=== PATIENT | male | born 1955 | race Caucasian/White ===

== ENCOUNTER 2019-08-31 19:24 | Outpatient (REF) | payer OTHER, SELFPAY ==
[2019-08-31 19:56] LABS: Basophils # 0.1 10^3/uL (0.0-0.1); Basophils % 0.7 %; Eosinophils # 0.2 10^3/uL (0.0-0.8); Eosinophils % 2.7 %; Hematocrit 37.2 % (42.0-52.0); Hemoglobin 11.4 g/dL (11.7-16.6); Lymphocytes # 2.6 10^3/uL (0.8-4.8); Lymphocytes % 31.3 %; Mean Corpuscular HGB Conc 30.6 g/dL (30.0-36.0); Mean Corpuscular Hemoglobin 25.7 pg (28.0-34.0); Mean Corpuscular Volume 83.8 fL (80-94); Mean Platelet Volume 10.6 fL (7.4-10.4); Monocytes # 0.6 10^3/uL (0.2-0.9); Monocytes % 7.4 %; Neutrophils # 4.7 10^3/uL (1.8-7.7); Neutrophils % 57.5 %; Nucleated Red Blood Cells % 0 %; Platelet Count 406 10^3/cmm (130-400); Red Blood Count 4.44 10^6/uL (4.1-5.3); Red Cell Distribution Width 13.7 % (12.1-15.1); White Blood Count 8.2 10^3/uL (4.0-10.0)
[2019-08-31 20:11] LABS: Alanine Aminotransferase 18 U/L (0-41); Albumin Level 4.2 g/dL (3.5-5.2); Alkaline Phosphatase 49 IU/L (40-130); Anion Gap 16.7 (5-19); Aspartate Amino Transferase 23 U/L (0-40); Blood Urea Nitrogen 11 mg/dL (8-23); Calcium 9.8 mg/Dl (8.8-10.2); Carbon Dioxide 22 mmol/L (22-29); Chloride 104 mmol/L (98-107); Globulin 3.6 g/dL (1.3-4.6); Glomerular Filtration Rate 85.8 mL/min (90-130); Glucose 112 mg/dL (74-106); Potassium 3.7 mmol/L (3.5-5.1); Sodium 139 mmol/L (136-145); Total Bilirubin 0.4 mg/dL (0.15-1.2); Total Protein 7.8 g/dL (6.6-8.7)
== END 2019-08-31 19:25 | disposition home or self-care (01) ==
LOC: LAB 19:24
PROVIDERS: Family Provider Family Medicine; Visit Provider Orthopaedic Surgery Foot and Ankle Surgery
DX: Z01.89 Encounter for other specified special examinations (principal)
CPT/HCPCS: 80053; 85025

== ENCOUNTER 2019-10-05 14:48 | Outpatient (CLI) | payer SELFPAY ==
--- NOTE | 2019-10-05 14:55 | CT_ITS ---
WS: [id number] CT HEAD TECHNIQUE: Noncontrast and contrast-enhanced CT of the head. CLINICAL INFORMATION: CANO, ?BRAIN TUMOR COMPARISON: MRI 2006 DLP: 1984.[address] scans at [facility] use at least one of these dose optimization techniques: automat ed exposure control; mA and/or kV adjustment per patient size (includes targeted exams where dose is matched to clinical indication); or iterative reconstruction. FINDINGS: MRI August 04, 2007 reviewed. Possible pituitary microadenoma measuring 5 mm in the left aspect of the pituitary was described on the prior MRI report. No evidence of intracranial hemorrhage or mass effect. Ventricular system and basal cisterns are parrish nt. Moderate small vessel changes with mild parenchymal volume loss. No abnormal intracranial enhance ment. Mastoid air cells are well aerated. Mild mucosal thickening in the ethmoid air cells. No abnormal intracranial enhancement. No visualized pituitary abnormalities although this would be be tter evaluated with MRI. No evidence of sellar or suprasellar mass. CT/CT head wo/w con [id number] IMPRESSION: 1. No evidence of intracranial hemorrhage or mass effect. 2. Moderate small vessel changes. Mild parenchymal volume loss. 3. No abnormal intracranial enhancement. 4. No visualized pituitary abnormalities. Pituitary would be better evaluated with MRI if continued clinical concern.
[2019-10-05] MEDS: iohexol 300 mg/mL 100 mL Btl IV (15:11)
== END 2019-10-05 14:49 | disposition home or self-care (01) ==
LOC: RADWPI 14:54
PROVIDERS: Family Provider Family Medicine; PCP Internal Medicine; Visit Provider Internal Medicine
DX: D49.6 Neoplasm of unspecified behavior of brain (principal); R51 Headache
CPT/HCPCS: 70470; Q9967

== ENCOUNTER 2020-01-18 17:53 | Outpatient (CLI) | payer SELFPAY ==
[2020-01-18 21:00] LABS: Creatinine Urine, Random 250 mg/dL (39-259); Microalbum Creatinine Ratio Ur 8 mg/dL (0-20); Microalbumin Random Urine 2 ug/dL (0-20)
== END 2020-01-18 17:54 | disposition home or self-care (01) ==
LOC: LAB 17:54
PROVIDERS: Visit Provider Preventive Medicine Occupational Medicine
DX: I10 Essential (primary) hypertension (principal); I25.10 Atherosclerotic heart disease of native coronary artery without angina pectoris
CPT/HCPCS: 82044

== ENCOUNTER 2020-05-02 17:58 | Outpatient (CLI) | payer SELFPAY ==
[2020-05-02 19:00] LABS: Basophils # 0.1 10^3/uL (0.0-0.1); Basophils % 0.7 %; Eosinophils # 0.2 10^3/uL (0.0-0.8); Eosinophils % 3.1 %; Hematocrit 38.3 % (42.0-52.0); Hemoglobin 12.1 g/dL (11.7-16.6); Lymphocytes # 2.5 10^3/uL (0.8-4.8); Lymphocytes % 32.7 %; Mean Corpuscular HGB Conc 31.6 g/dL (30.0-36.0); Mean Corpuscular Hemoglobin 26.9 pg (28.0-34.0); Mean Corpuscular Volume 85.3 fL (80-94); Mean Platelet Volume 10.9 fL (7.4-10.4); Monocytes # 0.7 10^3/uL (0.2-0.9); Monocytes % 9.6 %; Neutrophils # 4.02 10^3/uL (1.8-7.7); Neutrophils % 53.5 %; Nucleated Red Blood Cells % 0 %; Platelet Count 410 10^3/cmm (130-400); Red Blood Count 4.49 10^6/uL (4.1-5.3); Red Cell Distribution Width 13.2 % (12.1-15.1); White Blood Count 7.5 10^3/uL (4.0-10.0)
[2020-05-02 19:19] LABS: Alanine Aminotransferase 32 U/L (0-41); Albumin Level 4.2 g/dL (3.5-5.2); Alkaline Phosphatase 39 IU/L (40-130); Anion Gap 15.1 (5-19); Aspartate Amino Transferase 29 U/L (0-40); Blood Urea Nitrogen 15 mg/dL (8-23); Calcium 9.5 mg/dL (8.5-10.5); Carbon Dioxide 23 mmol/L (22-29); Chloride 100 mmol/L (98-107); Globulin 3.7 g/dL (1.3-4.6); Glomerular Filtration Rate 67.8 mL/min (90-130); Glucose 250 mg/dL (65-115); Osmolality Calculated 283 mOsm/kg (285-295); Potassium 4.1 mmol/L (3.5-5.1); Sodium 134 mmol/L (136-145); Total Bilirubin 0.5 mg/dL (0.15-1.2); Total Protein 7.9 g/dL (6.6-8.7)
[2020-05-02 19:32] LABS: Estmated Average Glucose 217; Hemoglobin A1C 9.2 % (4.0-6.0)
== END 2020-05-02 17:59 | disposition home or self-care (01) ==
LOC: LAB 18:02
PROVIDERS: Visit Provider General Practice
DX: E11.9 Type 2 diabetes mellitus without complications (principal)
CPT/HCPCS: 80053; 83036; 85025

== ENCOUNTER 2021-04-03 18:40 | Outpatient (REF) | payer SELFPAY ==
[2021-04-03 19:30] LABS: Add Urine Microscopic? NO; Charge for UA Resulting for Rev
[2021-04-03 19:59] LABS: Bilirubin Urine Neg (Negative); Blood Urine Neg (Negative); Glucose Urine UA 4+ (Normal); Ketones Urine Negative (Negative); Leukocyte Esterase Urine Negative (Negative); Nitrate Urine Negative (Negative); Protein Urine Neg (Negative); Specific Gravity, Urine 1.015 (1.005-1.030); Urine Appearance Clear (CLEAR); Urine Color Yellow (Yellow); Urobilinogen Urine Neg (Negative); pH Urine 5 (5-7)
[2021-04-03 20:20] LABS: Alanine Aminotransferase 108 U/L (0-41); Albumin Level 4.2 g/dL (3.5-5.2); Alkaline Phosphatase 39 IU/L (40-130); Anion Gap 18.1 (5-19); Aspartate Amino Transferase 105 U/L (0-40); Blood Urea Nitrogen 22 mg/dL (8-23); Carbon Dioxide 20 mmol/L (22-29); Chloride 97 mmol/L (98-107); Globulin 3.8 g/dL (1.3-4.6); Glomerular Filtration Rate 61.1 mL/min (90-130); Glucose 432 mg/dL (65-115); Osmolality Calculated 294 mOsm/kg (285-295); Potassium 4.1 mmol/L (3.5-5.1); Sodium 131 mmol/L (136-145); Total Bilirubin 0.6 mg/dL (0.15-1.2)
[2021-04-03 20:37] LABS: Estmated Average Glucose 306; Hemoglobin A1C 12.3 % (4.0-6.0)
== END 2021-04-03 18:41 | disposition home or self-care (01) ==
LOC: LAB 18:40
PROVIDERS: Visit Provider General Practice
DX: E11.9 Type 2 diabetes mellitus without complications (principal)
CPT/HCPCS: 80053; 81003; 83036

== ENCOUNTER 2021-11-25 15:41 | Outpatient (CLI) | payer OTHER, SELFPAY ==
--- NOTE | 2021-11-25 16:24 | XR_ITS ---
WS: [id number] XR lumbar spine 2-3V* [id number] REASON FOR EXAM: LUMBAGO WITH SCIATICA RIGHT SIDE FINDINGS: Rotatory scoliosis convex right on the AP view. Mild straightening of the upper lumbar lordosis on th e lateral. Mild chronic compression deformity of L1 and T12. Mild to moderate narrowing of the disc spaces L1-S1. Large anterior osteophyte formation at L1-L2 and L2-L3. No spondylolysis. No significant spondylolisthesis. Compared to previous examination of 04/24/2016 enlargement of the osteophyte formation at L1-L2, L2-L3 and L3-L4. Otherwise no significant interval change. XR/XR lumbar spine 2-3V* [id number] IMPRESSION: Multilevel degenerative spondylosis in the lumbar spine as above.
--- NOTE | 2021-11-25 16:25 | XR_ITS ---
WS: [id number] XR ankle RT min 3V* [id number] REASON FOR EXAM: ANKLE PAIN, RIGHT FINDINGS: No acute fracture or focal bone lesion. Deformity of the distal right fibula with narrowing of the lateral aspect of the ankle joint. Subchon dral sclerosis and cystic change on the medial subarticular aspect of the fibula. No soft tissue abnormality. 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 Presum ed old healed fracture of the distal right fibula.
== END 2021-11-25 15:42 | disposition home or self-care (01) ==
PROVIDERS: PCP General Practice; Visit Provider Family Medicine
DX: M54.41 Lumbago with sciatica, right side (principal); M25.571 Pain in right ankle and joints of right foot; M47.816 Spondylosis without myelopathy or radiculopathy, lumbar region
CPT/HCPCS: 72100; 73610

== ENCOUNTER 2021-12-10 11:52 | Outpatient (RCR) | payer OTHER, SELFPAY | END 2021-12-20 23:59 | disposition home or self-care (01) | LOC: SPT 11:52 | PROVIDERS: PCP General Practice; Referring Provider Family Medicine; Visit Provider Family Medicine | DX: M25.571 Pain in right ankle and joints of right foot (principal); M54.41 Lumbago with sciatica, right side; M54.9 Dorsalgia, unspecified | CPT/HCPCS: 97161 ==

== ENCOUNTER 2021-12-21 | Outpatient (RCR) | payer OTHER, SELFPAY | END 2022-01-20 23:59 | disposition home or self-care (01) | LOC: SPT | PROVIDERS: PCP General Practice; Referring Provider Family Medicine; Visit Provider Family Medicine | DX: M25.571 Pain in right ankle and joints of right foot (principal); M54.41 Lumbago with sciatica, right side; G89.29 Other chronic pain; M54.9 Dorsalgia, unspecified | CPT/HCPCS: 97110 ==

== ENCOUNTER 2022-01-29 16:13 | Emergency (ER) | payer MEDICARE, OTHER, SELFPAY ==
--- NOTE | 2022-01-29 16:15 | XRR_ITS ---
PROCEDURE INFORMATION: Exam: XR Chest Exam date and time: 01/29/2022 5:01 PM Age: 66 years old Clinical indication: Other: Low blood sugar; Additional info: AMS TECHNIQUE: Imaging protocol: XR of the chest. Views: 1 view. COMPARISON: CR Chest 1 [place] [id number] 03/09/2016 8:48 AM FINDINGS: Lungs: Unremarkable. No consolidation. Pleural spaces: Unremarkable. No pleural effusion. No pneumothorax. Heart/Mediastinum: Unremarkable. No cardiomegaly. Bones/joints: Unremarkable. XR/XR chest 1V portable [id number] IMPRESSION: No acute findings.
--- NOTE | 2022-01-29 16:15 | ECG_ITS ---
[facility] Test Date: 2022-01-29 Pat Name: Barber Corral Department: Room: Gender: Male Certifier: : 1955 Requested By: Britney Nguyen Order Number: [id number] Soniya MD: Dominic Jennings M.D. Measurements Intervals [place] Rate: 92 P: 70 TN: 159 QRS: 81 QRSD: 138 T: 61 QT: 383 QTc: 475 Interpretive Statements SINUS RHYTHM RIGHT BUNDLE BRANCH BLOCK [120+ ms QRS DURATION, UPRIGHT V1, 40+ ms S IN I/aVL/V4/V5/V6] POSSIBLE ANTERIOR MYOCARDIAL INFARCTION , OF INDETERMINATE AGE [30 ms Q WAVE IN V3/V4, OR R < 0.2 mV IN V4] INFERIOR MYOCARDIAL INFARCTION , PROBABLY OLD [40+ ms Q WAVE AND/OR ST/T ABNORMALITY IN II/aVF] Compared to ECG 08/03/2019 05:39:49 Left posterior fascicular block no longer present Myocardial infarct finding still present Electronically Signed On 01-30-2022 17:01:07 CDT by Dominic Jennings M.D. [id number]
--- NOTE | 2022-01-29 16:15 | CTR_ITS ---
PROCEDURE INFORMATION: Exam: CT Head Without Contrast Exam date and time: 01/29/2022 5:00 PM Age: 66 years old Clinical indication: Altered mental status/memory loss and dizziness; Confusion or disorientation; Additional info: AMS, hypoglycemic TECHNIQUE: Imaging protocol: Computed tomography of the head without contrast. Radiation optimization: All CT scans at this facility use at least one of these dose optimization techniques: automated exposure control; mA and/or kV adjustment per patient size (includes targeted exams where dose is matched to clinical indication); or iterative reconstruction. COMPARISON: CT head wo/w con [id number] 10/05/2019 3:10 PM RADIATION DOSE METRICS: Total DLP (mGy-cm): 945.9 FINDINGS: Brain: No hemorrhage. No edema. Mild diffuse cerebral atrophy and sequela of chronic small vessel ischemic disease. No mass effect. Cerebral ventricles: No ventriculomegaly. Paranasal sinuses: Visualized sinuses are unremarkable. No fluid levels. Mastoid air cells: Visualized mastoid air cells are well aerated. Bones/joints: Unremarkable. No acute fracture. Soft tissues: Unremarkable. CT/CT head wo con* [id number] IMPRESSION: 1. No acute intracranial abnormality. 2. Mild diffuse cerebral atrophy and sequela of chronic small vessel ischemic disease.
[2022-01-29 16:31] VITALS: BP 87/56; PULSE 96; RESP 20; TEMP 36.3; BMI 35.4
[2022-01-29 16:37] VITALS: BP 93/65
--- NOTE | 2022-01-29 18:43 | ED_ITS ---
HPI - Altered Mental Status General: Chief Complaint: Altered Mental Status Stated Complaint: AMS Time Seen by Provider: 01/29/22 18:41 History of Present Illness: 66-year-old male patient became confused this afternoon. Patient reports that he was listening to the radio when his female friend came down to check on him. Patient did not answer the doorbell at first and his friend had to use the hidden clements in order to get into the room. Patient reports that he did not hear the doorbell and seemed confused at the time. Patient said that it felt like his blood sugar was low and he had hard time talking with her. She had gone to the store and got him some yogurt and a soda pop. Patient is very talkative at this time and seems to be recalling the events appropriately. Patient's friend in the room is male and does state he seems better now than what he was at first but does not seem to be acting his normal self at this time. NIH stroke score is 0 at this time. Associated symptoms: Deny depression Review of Systems General: Reports: 10 or more systems reviewed and unremarkable except in HPI and below Const: Denies: fever(s) ENMT: Denies: throat pain Card: Denies: chest pain Resp: Denies: dyspnea GI: Denies: nausea or vomiting Musc: Denies: neck pain Skin/Breast: Denies: rash Neuro: Reports: headache(s) and confusion Psych: Denies: depression PFSH ED PFSH: Medical History (Updated 01/29/22 @ 22:41 by HARINDER Santiago) ASHD (arteriosclerotic heart disease) Diabetes Encounter for screening colonoscopy Hyperlipidemia Hypertension Myocardial infarction Surgical History (Updated 09/09/21 @ 09:57 by Rolando Richard MD) History of coronary artery stent placement History of foot surgery S/P tonsillectomy Family History Father CAD (coronary artery disease) LIVER Social History Smoking and tobacco status: never smoked Marital status: service: No Current occupational status: disabled Physical Exam Const: COMMON NORMALS: alert HENMT: COMMON NORMALS: normocephalic HEAD & SCALP: normal to inspection and normocephalic Eye: GENERAL EYE: appearance normal, both eyes and all related structures Neck/C-Spine: COMMON NORMALS: full ROM, no lymphadenopathy and no meningeal signs Resp: COMMON NORMALS: normal respiratory effort and clear to auscultation bilaterally AUSCULTATION: clear to auscultation bilaterally Cardio: COMMON NORMALS: regular rate and regular rhythm RATE: regular rate RHYTHM: regular rhythm GI: COMMON NORMALS: Soft to palpation and non-tender PALPATION: Yes Soft to palpation Back/Pelvis: COMMON NORMALS: thoracic and lumbar spine normal to inspection Extremity: COMMON NORMALS: normal to inspection and no pedal edema Neuro: SENSORIUM/ORIENTATION: Yes alert MENINGEAL SIGNS: Yes no meningeal signs Psych: COMMON NORMALS: cooperative and speech normal SPEECH: Yes normal speech Skin: COMMON NORMALS: no rashes or lesions noted GENERAL SKIN EXAM: no rashes or lesions noted Sepsis: Is patient septic: No Course ED course: 1954, nursing notified me blood glucose was 400+ per fingerstick. Patient was started on a saline bolus of 1000 mL, given 10 units of rapid acting insulin subcu. ABG was ordered and serum ketones was ordered. Considering hyponatremia versus DKA, versus hyperosmotic nonketotic acidosis. Vital Signs: Vital signs: Vital Signs Temperature 97.4 F L 01/29/22 16:31 Pulse Rate 97 01/29/22 23:42 Respiratory Rate 22 H 01/29/22 23:42 Blood Pressure 180/88 01/29/22 23:42 Pulse Oximetry 99 01/29/22 23:42 MDM - Altered Mental Status Medical Decision Making 66-year-old male patient comes in today with altered mental status. Patient has chronic back pain and recently been started back on baclofen and hydrocodone for pain. His sister came into check on him this afternoon and found him he was confused. He thought his blood sugar was real low. Patient is much better since arriving at the ER but does have some mild confusion still. On exam respirations are even lungs are clear to auscultation. Abdomen is soft nontender. Patient did complain of some right ankle pain. No significant abnormality was noted to the ankle. Vital signs were normal except blood pressure was slightly low at 90 systolic. Differential diagnosis includes but not limited to CVA, adverse drug effect, depression, hypoglycemia. Blood glucose tested 400+ on arrival to the ER. Patient was given 2 L of IV fluids with brought her blood pressure up to 180 systolic. Patient was able to give us urine specimen that that showed no significant infection. Patient's creatinine was 1.6. CBC noted a 12,000 white count and platelets of 518. I believe patient probably had adverse drug effect secondary to baclofen, amitriptyline, and possibly hydrocodone. Recommended holding the baclofen and possibly the amitriptyline due to the patient's age and comorbidities. Patient was much improved by discharge. Was alert and was able to carry on conversation recall all events in the ER. Discussed with family recommendations for follow-up with primary care and discussed medications that would increase his confusion. Family reported understanding agreed to plan. Lab Data : 01/29/22 19:43 01/29/22 19:43 Radiology Impressions Chest X-Ray 01/29/22 16:15 IMPRESSION: No acute findings. Head CT 01/29/22 16:15 IMPRESSION: 1. No acute intracranial abnormality. 2. Mild diffuse cerebral atrophy and sequela of chronic small vessel ischemic disease. Laboratory Results WBC 12.2 10^3/uL (4.0-10.0) H 01/29/22 19:43 RBC 4.68 10^6/uL (4.1-5.3) 01/29/22 19:43 Hgb 12.1 g/dL (11.7-16.6) 01/29/22 19:43 Hct 37.2 % (42.0-52.0) L 01/29/22 19:43 MCV 79.5 fl (80-94) L 01/29/22 19:43 MCH 25.9 pg (28.0-34.0) L 01/29/22 19:43 MCHC 32.5 g/dL (30.0-36.0) 01/29/22 19:43 RDW 13.6 % (12.1-15.1) 01/29/22 19:43 Plt Count 518 10^3/cmm (130-400) H 01/29/22 19:43 MPV 10.1 fL (7.4-10.4) 01/29/22 19:43 Neut % (Auto) 74.9 % 01/29/22 19:43 Lymph % (Auto) 17.0 % 01/29/22 19:43 [place] % (Auto) 7.4 % 01/29/22 19:43 Eos % (Auto) 0.0 % 01/29/22 19:43 Baso % (Auto) 0.2 % 01/29/22 19:43 Neut # (Auto) 9.13 10^3/uL (1.8-7.7) H 01/29/22 19:43 Lymph # (Auto) 2.1 10^3/uL (0.8-4.8) 01/29/22 19:43 Carson # (Auto) 0.9 10^3/uL (0.2-0.9) 01/29/22 19:43 Eos # (Auto) 0.0 10^3/uL (0.0-0.8) 01/29/22 19:43 Baso # (Auto) 0.0 10^3/uL (0.0-0.1) 01/29/22 19:43 Nucleated RBC % (auto) 0 % 01/29/22 19:43 Nucleated RBCs # 0.0 /100WBC 01/29/22 19:43 Sodium 133 mmol/L (136-145) L 01/29/22 19:43 Potassium 5.1 mmol/L (3.5-5.1) 01/29/22 19:43 Chloride 93 mmol/L (98-107) L 01/29/22 19:43 Carbon Dioxide 23 mmol/L (22-29) 01/29/22 19:43 Anion Gap 22.1 (5-19) H 01/29/22 19:43 BUN 17 mg/dL (8-23) 01/29/22 19:43 Creatinine 1.6 mg/dL (0.7-1.2) H 01/29/22 19:43 GFR Calculation 43.7 mL/min (90-130) L 01/29/22 19:43 Glucose 399 mg/dL (65-115) H 01/29/22 19:43 POC Glucose 279 mg/dL (70-110) H 01/29/22 21:48 Calculated Osmolality 294 mOsm/kg (285-295) 01/29/22 19:43 Calcium 10.3 mg/dL (8.5-10.5) 01/29/22 19:43 Total Bilirubin 0.7 mg/dL (0.15-1.2) 01/29/22 19:43 AST 57 U/L (0-40) H 01/29/22 19:43 ALT 52 U/L (0-41) H 01/29/22 19:43 Alkaline Phosphatase 35 IU/L (40-130) L 01/29/22 19:43 Ammonia 15 umol/L (16-60) L 01/29/22 19:43 Troponin T Baseline 33 ng/L (0-15) H 01/29/22 19:43 Troponin T 120 Minute 25.69 ng/L (0-15) H 01/29/22 21:50 Delta Troponin T -7.31 ABS# (0-10) L 01/29/22 21:50 Total Protein 7.7 g/dL (6.6-8.7) 01/29/22 19:43 Albumin 4.5 g/dL (3.5-5.2) 01/29/22 19:43 Globulin 3.2 g/dL (1.3-4.6) 01/29/22 19:43 Lipase 45 U/L (13-60) 01/29/22 19:43 TSH 0.77 uIU/mL (0.27-4.20) 01/29/22 19:43 Free T4 1.33 ng/dL (0.82-1.77) 01/29/22 19:43 Urine Color Yellow (Yellow) 01/29/22 22:40 Urine Appearance Sl hazy (CLEAR) 01/29/22 22:40 Urine pH 5 (5-7) 01/29/22 22:40 Ur Specific [place] 1.005 (1.005-1.030) 01/29/22 22:40 Urine Protein 1+ (Negative) H 01/29/22 22:40 Urine Glucose (UA) 4+ (Normal) H 01/29/22 22:40 Urine Ketones 1+ (Negative) H 01/29/22 22:40 Urine Blood 2+ (Negative) H 01/29/22 22:40 Urine Nitrate Negative (Negative) 01/29/22 22:40 Urine Bilirubin Neg (Negative) 01/29/22 22:40 Urine Urobilinogen Norm mg/dL (Negative) 01/29/22 22:40 Ur Leukocyte Esterase Negative (Negative) 01/29/22 22:40 Urine RBC 10-15 /hpf (0-2) H 01/29/22 22:40 Urine WBC 5-10 /hpf (0-5) H 01/29/22 22:40 Ur Squamous Epith Cells 10-15 /hpf (0-5) H 01/29/22 22:40 Amorphous Sediment Not Reportable 01/29/22 22:40 Urine Bacteria 1+ /hpf (NONE) H 01/29/22 22:40 Urine Mucus 1+ /hpf 01/29/22 22:40 Salicylates < 0.3 mg/dL (3-10) L 01/29/22 19:43 Acetaminophen < 5.0 ug/mL (10-30) L 01/29/22 19:43 Serum Ketones Negative (Negative) 01/29/22 19:43 EKG Data EKG 1: EKG interpretation date: 01/29/22 EKG interpretation time: 20:12 Prior EKG tracings: available for review Interpretation: EKG shows a sinus rhythm, no ST elevation is noted, regular rate at 92 bpm. Reviewed previous exam from 2019 without significant changes. EKG 2: EKG interpretation date: 01/29/22 EKG interpretation time: 23:27 Interpretation: EKG shows a sinus rhythm with a regular rate at 95 bpm. No significant changes noted from prior exam. No ST elevation or ectopy is noted. Significant artifact is present. Discharge Plan Discharge Patient Disposition: Home Clinical Impression: Dehydration Adverse drug effect Qualifiers: Encounter type: initial encounter Qualified Code(s): T50.905A - Adverse effect of unspecified drugs, medicaments and biological substances, initial encounter Low back pain Qualifiers: Chronicity: chronic Back pain laterality: unspecified Sciatica presence: with sciatica Sciatica laterality: bilateral sciatica Qualified Code(s): M54.41 - Lumbago with sciatica, right side Condition: Stable Prescriptions: No Action amitriptyline 25 mg tablet 25 mg PO BEDTIME 0RF omeprazole 20 mg capsule,delayed release(DR/EC) 20 mg PO BID 0RF aspirin [Aspir-81] 81 mg tablet,delayed release (DR/EC) 81 mg PO DAILY 0RF clopidogrel 75 mg tablet 75 mg PO DAILY 0RF metoprolol tartrate 25 mg tablet 25 mg PO BID 0RF atorvastatin 40 mg tablet 40 mg PO DAILY 0RF hydrocodone-acetaminophen 5-325 mg tablet 1 tab PO Q6H PRN (Reason: Pain) 0RF meloxicam 15 mg tablet 7.5 mg PO BID PRN (Reason: arthritis pain) 0RF glipizide 10 mg tablet 20 mg PO BID 0RF baclofen 20 mg tablet 20 mg PO TID PRN (Reason: Pain) 0RF gabapentin 300 mg capsule 300 mg PO BEDTIME 0RF Discharge Orders: Discharge ED (Routine); Ordered 01/29/22 Ordered By: Preet Warren Referrals: Abdulaziz Prado MD [Primary Care Provider] - Discharge Diet: Usual diet Discharge Activity: Increase activity as tolerated Patient Instructions: Back Pain (ED), Opioid Safety (ED) Activity Restrictions/Additional Instructions: Continue with routine care. Drink plenty of fluids. Avoid the use of hydrocodone and baclofen together. I believe this combination may be increasing your confusion. Try to use acetaminophen, [id number] Tylenol, to control your pain. Use hydrocodone for severe pain. Stop the baclofen. Follow-up with primary care for recheck. Return to ER for new concerns. Coding Level of Care Code ED Real Estate Investor for Bk Fwd Exam Comprehensive
[2022-01-29 19:48] LABS: Glucose Point of Care 442 mg/dL (70-110)
[2022-01-29 20:01] LABS: Basophils % 0.2 %; Hematocrit 37.2 % (42.0-52.0); Hemoglobin 12.1 g/dL (11.7-16.6); Lymphocytes # 2.1 10^3/uL (0.8-4.8); Mean Corpuscular HGB Conc 32.5 g/dL (30.0-36.0); Mean Corpuscular Hemoglobin 25.9 pg (28.0-34.0); Mean Corpuscular Volume 79.5 fl (80-94); Mean Platelet Volume 10.1 fL (7.4-10.4); Monocytes # 0.9 10^3/uL (0.2-0.9); Monocytes % 7.4 %; Neutrophils # 9.13 10^3/uL (1.8-7.7); Neutrophils % 74.9 %; Nucleated Red Blood Cells % 0 %; Platelet Count 518 10^3/cmm (130-400); Red Blood Count 4.68 10^6/uL (4.1-5.3); Red Cell Distribution Width 13.6 % (12.1-15.1); White Blood Count 12.2 10^3/uL (4.0-10.0)
[2022-01-29] MEDS: insulin lispro 100 unit/1 mL 10 UNIT SUBCUT (20:10)
[2022-01-29] MEDS: sodium chloride 0.9% 1,000 ML 999 ML IV ×2 (20:10→21:50)
[2022-01-29 20:19] LABS: Troponin(5th) Baseline 33 ng/L (0-15)
[2022-01-29 20:21] LABS: Ketone (Acetest) Serum Negative (Negative)
[2022-01-29 20:22] LABS: Ammonia 15 umol/L (16-60)
[2022-01-29 20:28] LABS: Alanine Aminotransferase 52 U/L (0-41); Albumin Level 4.5 g/dL (3.5-5.2); Alkaline Phosphatase 35 IU/L (40-130); Aspartate Amino Transferase 57 U/L (0-40); Blood Urea Nitrogen 17 mg/dL (8-23); Calcium 10.3 mg/dL (8.5-10.5); Carbon Dioxide 23 mmol/L (22-29); Chloride 93 mmol/L (98-107); Globulin 3.2 g/dL (1.3-4.6); Glomerular Filtration Rate 43.7 mL/min (90-130); Glucose 399 mg/dL (65-115); Lipase 45 U/L (13-60); Osmolality Calculated 294 mOsm/kg (285-295); Sodium 133 mmol/L (136-145); Thyroid Stimulating Hormone 0.77 uIU/mL (0.27-4.20); Total Bilirubin 0.7 mg/dL (0.15-1.2); Total Protein 7.7 g/dL (6.6-8.7)
[2022-01-29 20:34] LABS: Acetaminophen < 5.0 ug/mL (10-30); Anion Gap 22.1 (5-19); Potassium 5.1 mmol/L (3.5-5.1); Salicylate < 0.3 mg/dL (3-10)
[2022-01-29 21:04] VITALS: BP 146/96; PULSE 97; RESP 22; O2SAT 99
[2022-01-29 21:52] LABS: Glucose Point of Care 279 mg/dL (70-110)
--- NOTE | 2022-01-29 22:15 | ECG_ITS ---
[facility] Test Date: 2022-01-29 Pat Name: Barber Corral Department: Room: Gender: Male Clutch Inspector: : 1955 Requested By: Britney Nguyen Order Number: [id number] Soniya MD: Dominic Jennings M.D. Measurements Intervals [place] Rate: 95 P: 52 MI: 167 QRS: 56 QRSD: 137 T: 52 QT: 366 QTc: 460 Interpretive Statements SINUS RHYTHM INDETERMINATE AXIS RIGHT BUNDLE BRANCH BLOCK [120+ ms QRS DURATION, UPRIGHT V1, 40+ ms S IN I/aVL/V4/V5/V6] INFERIOR MYOCARDIAL INFARCTION , OF INDETERMINATE AGE [40+ ms Q WAVE AND/OR ST/T ABNORMALITY IN II/aVF] Compared to ECG 01/29/2022 19:52:34 Indeterminate axis now present Myocardial infarct finding still present Electronically Signed On 01-30-2022 17:03:05 CDT by Dominic Jennings M.D. [id number]
[2022-01-29 22:18] LABS: Free T4 Free Thyroxine 1.33 ng/dL (0.82-1.77)
[2022-01-29 22:26] LABS: Troponin 5 2HR 25.69 ng/L (0-15)
[2022-01-29 22:30] VITALS: BP 163/96; PULSE 96; RESP 22; O2SAT 98
[2022-01-29 22:33] LABS: Troponin 5 2HR Delta -7.31 ABS# (0-10)
[2022-01-29 23:29] LABS: Add Urine Microscopic? YES; Bilirubin Urine Neg (Negative); Blood Urine 2+ (Negative); Glucose Urine UA 4+ (Normal); Ketones Urine 1+ (Negative); Leukocyte Esterase Urine Negative (Negative); Nitrate Urine Negative (Negative); Protein Urine 1+ (Negative); Specific Gravity, Urine 1.005 (1.005-1.030); Urine Appearance SL Hazy (CLEAR); Urine Color Yellow (Yellow); Urobilinogen Urine Norm (Negative); pH Urine 5 (5-7)
[2022-01-29 23:34] LABS: Add Urine Culture? No; Bacteria Urine 1+ /hpf; Mucus Urine 1+ /hpf
[2022-01-29 23:42] VITALS: BP 180/88; PULSE 97; RESP 22; O2SAT 99
[2022-01-29 23:45] VITALS: BP 180/88; PULSE 97; RESP 22; O2SAT 99
== END 2022-01-29 23:46 | disposition home or self-care (01) ==
PROVIDERS: Emergency Medicine; Emergency Provider Nurse Practitioner Family; PCP General Practice
DX: E86.0 Dehydration (principal); R41.0 Disorientation, unspecified; T42.8X5A Adverse effect of antiparkinsonism drugs and other central muscle-tone depressants, initial encounter; T40.2X5A Adverse effect of other opioids, initial encounter; T43.015A Adverse effect of tricyclic antidepressants, initial encounter; E11.65 Type 2 diabetes mellitus with hyperglycemia; M54.41 Lumbago with sciatica, right side; G89.29 Other chronic pain; I95.9 Hypotension, unspecified; Z79.82 Long term (current) use of aspirin; Z79.02 Long term (current) use of antithrombotics/antiplatelets; Z79.891 Long term (current) use of opiate analgesic; Z79.84 Long term (current) use of oral hypoglycemic drugs
CPT/HCPCS: 36416; 36600; 70450; 71045; 80053; 80307; 81001; 82009; 82140; 82803; 82962; 83690; 84439; 84443; 84484; 85025; 93005; 96372; 99284; J1815; J7030

== ENCOUNTER 2022-02-03 12:08 | Outpatient (CLI) | payer MEDICARE, OTHER, SELFPAY ==
--- NOTE | 2022-02-03 12:29 | MR_ITS ---
WS: [id number] MRI LUMBAR SPINE NONCONTRAST TECHNIQUE: Sagittal T1, T2 and STIR imaging. Axial T1 and T2 imaging. CLINICAL INFORMATION: SPONDYLOSIS LUMBAR W/RADICULOPATHY/CHRONIC BACK PAIN COMPARISON: None. FINDINGS: Mild lumbar curve. No acute compression. Mild disc bulging with small protrusions worse L4-L5. L1-L2: Mild facet arthropathy. Spinal canal and foramen are patent. L2-L3: RIGHT eccentric disc bulge with mild RIGHT foraminal narrowing. LEFT foramen is patent. Mild f acet arthropathy. L3-L4: Mild annular bulging. RIGHT foraminal protrusion slightly impinges the exiting RIGHT L3 nerve root. Mild LEFT and moderate RIGHT foraminal narrowing. Narrowing of the subarticular recess bilatera lly with mild central canal stenosis. Mild facet arthropathy. L4-L5: RIGHT subarticular disc protrusion impinges the RIGHT subarticular recess and traversing RIGHT L5 nerve root. Moderate central canal stenosis. Moderate RIGHT foraminal narrowing. Moderate facet a rthropathy with ligamentum flavum hypertrophy. Disc material measures 8 x 14 mm AP by Transverse . L5-S1: Small LEFT pericentral protrusion slightly impinges the traversing LEFT S1 nerve root in the s ubarticular recess. Correlation LEFT S1 nerve root symptoms. Mild bilateral foraminal narrowing. Mild facet arthropathy. Small central protrusions in the mid thoracic spine seen on the solar project coordination specialist imaging. Mild central canal daniel nosis in the lower cervical spine at C7-T1. MR/MR lumbar spine wo con* [id number] IMPRESSION: 1. Mild lumbar curve. No acute compression. Disc bulging worse L4-L5. 2. RIGHT pericentral disc protrusion L4-L5 impinges the RIGHT subarticular rec ess and traversing RIGHT L5 nerve root. Disc protrusion measures 8 x 14 mm AP b y transverse. 3. Moderate RIGHT L4-L5 foraminal narrowing. 4. RIGHT foraminal protrusion L3-L4 with moderate RIGHT foraminal narrowing. 5. Mild central canal stenosis L3-L4. 6. LEFT pericentral disc protrusion L5-S1 impinges the traversing LEFT S1 nerv e root in the subarticular recess. Correlation LEFT S1 nerve root symptoms. Mil d bilateral L5-S1 foraminal narrowing. 7. Moderate facet arthropathy L4-L5 and L5-S1.
== END 2022-02-03 12:09 | disposition home or self-care (01) ==
LOC: RAD 12:09
PROVIDERS: PCP General Practice; Visit Provider Family Medicine
DX: M47.26 Other spondylosis with radiculopathy, lumbar region (principal); M54.9 Dorsalgia, unspecified; M51.16 Intervertebral disc disorders with radiculopathy, lumbar region; M48.061 Spinal stenosis, lumbar region without neurogenic claudication; M51.27 Other intervertebral disc displacement, lumbosacral region
CPT/HCPCS: 72148

== ENCOUNTER → 2022-02-10 12:52 | Outpatient (BNVA) | payer MEDICARE, SELFPAY | PROVIDERS: PCP General Practice; Visit Provider Orthopaedic Surgery | DX: M48.062 Spinal stenosis, lumbar region with neurogenic claudication (principal); M51.26 Other intervertebral disc displacement, lumbar region; M47.816 Spondylosis without myelopathy or radiculopathy, lumbar region | CPT/HCPCS: 72120; 99204 ==

== ENCOUNTER 2022-02-17 01:34 | Emergency (ER) | payer MEDICARE, SELFPAY ==
[2022-02-17 01:41] VITALS: BP 135/87; PULSE 110; RESP 18; TEMP 37.9; O2SAT 98; BMI 34.9
[2022-02-17] MEDS: sulfamethoxazole-trimeth DS 160-800 mg Tablet 1 TAB PO (02:00)
[2022-02-17] MEDS: HYDROcodone-acetaminophen 5-325 mg Tablet 1 TAB PO (02:00)
--- NOTE | 2022-02-17 02:11 | ED_ITS ---
HPI - Skin/Abscess/Foreign Bdy General: Chief complaint: Skin/Abscess/Foreign Body Stated complaint: Cyst on back Time Seen by Provider: 02/17/22 01:52 History of Present Illness: Patient comes in with a sore lesion to the left lower back. Patient reports that he had a cyst there for a while but is gotten red and inflamed. Last night someone had poked and prodded on it and got some drainage out but tonight it feels more sore and tender. Patient denies any fever, or nausea and vomiting. Patient appears nontoxic. Patient appears in mild pain. Review of Systems General: Reports: 10 or more systems reviewed and unremarkable except in HPI and below Skin/Breast: Reports: erythema and skin tenderness PFS ED PFSH: Medical History ASHD (arteriosclerotic heart disease) Diabetes Encounter for screening colonoscopy Hyperlipidemia Hypertension Myocardial infarction Surgical History History of coronary artery stent placement History of foot surgery S/P tonsillectomy Family History Father CAD (coronary artery disease) LIVER Social History Smoking and tobacco status: never smoked Marital status: service: No Current occupational status: disabled Physical Exam Const: COMMON NORMALS: alert Neck/C-Spine: COMMON NORMALS: full ROM Resp: COMMON NORMALS: normal respiratory effort and clear to auscultation bilaterally AUSCULTATION: clear to auscultation bilaterally Cardio: COMMON NORMALS: regular rate and regular rhythm RATE: regular rate RHYTHM: regular rhythm : COMMON NORMALS: Yes no CVA tenderness BLADDER/KIDNEY EXAM: Yes no CVA tenderness Back/Pelvis: COMMON NORMALS: no CVA tenderness Neuro: SENSORIUM/ORIENTATION: Yes alert Skin: LESIONS: lesion noted (Left lower back, erythema 6 cm surrounding, induration.) Procedures Abscess I/D Site: back Side (if applicable): left Local Anesthetic: lidocaine 2% Amount of anesthesia used (mL): 5 Technique: incised with #11 blade Amount of fluid expressed (mL): 2 Irrigation: Yes Packing used?: plain (2 inch,) Course Vital Signs: Vital signs: Vital Signs Temperature 100.2 F H 02/17/22 01:41 Pulse Rate 110 H 02/17/22 01:41 Respiratory Rate 18 02/17/22 01:41 Blood Pressure 135/87 02/17/22 01:41 Pulse Oximetry 98 02/17/22 01:41 MDM - Skin/Abscess/Foreign Bdy Medicial Decision Making 66-year-old male patient comes in with a indurated red lesion to the back. On exam we note a 6 cm area of redness to the left lower back with a centralized punctate lesion. Induration is noted to the area of redness. Differential diagnosis includes cellulitis, abscess, infected sebaceous cyst. Under local anesthetic a 1 cm incision was made with purulent drainage from it approximately 2 mL. 2 inches of packing was placed in the wound to keep it open. Patient was given Bactrim. Patient was given 1 hydrocodone for postprocedure pain. Patient does have pain medications at home. We will continue patient on Bactrim and recommend follow-up in 3 days with primary care. Patient reported understanding agreed to plan. Discharge Plan Discharge Patient Disposition: Home Clinical Impression: Abscess of skin or subcutaneous tissue Qualifiers: Site of cutaneous abscess: trunk Site of cutaneous abscess of trunk: back Qualified Code(s): L02.212 - Cutaneous abscess of back [any part, except buttock] Condition: Stable Prescriptions: New Bactrim DS 800-160 mg tablet 1 tab PO BID 7 Days Qty: 14 0RF No Action amitriptyline 25 mg tablet 25 mg PO BEDTIME 0RF omeprazole 20 mg capsule,delayed release(DR/EC) 20 mg PO BID 0RF aspirin [Aspir-81] 81 mg tablet,delayed release (DR/EC) 81 mg PO DAILY 0RF clopidogrel 75 mg tablet 75 mg PO DAILY 0RF metoprolol tartrate 25 mg tablet 25 mg PO BID 0RF atorvastatin 40 mg tablet 40 mg PO DAILY 0RF hydrocodone-acetaminophen 5-325 mg tablet 1 tab PO Q6H PRN (Reason: Pain) 0RF meloxicam 15 mg tablet 7.5 mg PO BID PRN (Reason: arthritis pain) 0RF glipizide 10 mg tablet 20 mg PO BID 0RF baclofen 20 mg tablet 20 mg PO TID PRN (Reason: Pain) 0RF gabapentin 300 mg capsule 300 mg PO BEDTIME 0RF Discharge Orders: Discharge ED (Routine); Ordered 02/17/22 Ordered By: Preet Warren Referrals: Rafi Travis MD [Primary Care Provider] - Discharge Diet: Usual diet Discharge Activity: Increase activity as tolerated Patient Instructions: Abscess Incision and Drainage (DC) Activity Restrictions/Additional Instructions: Warm moist packs to the area. Drink plenty of water with antibiotic. Take antibiotic twice a day for the next 7 days. Follow-up with primary care in 3 d ays for recheck. Return to ER for fevers greater than 100.4, nausea and vomiting, or new concerns. Coding Level of Care Code ED Operator Automated Process for Bk Teague
[2022-02-17 02:15] VITALS: BP 110/69; PULSE 97; RESP 18; O2SAT 98
[2022-02-17 02:30] VITALS: BP 110/69; PULSE 97; RESP 18; O2SAT 98
== END 2022-02-17 02:40 | disposition home or self-care (01) ==
PROVIDERS: Emergency Provider Nurse Practitioner Family; PCP Family Medicine
DX: L02.12 Furuncle of neck (principal); Z79.84 Long term (current) use of oral hypoglycemic drugs; Z79.02 Long term (current) use of antithrombotics/antiplatelets; Z79.82 Long term (current) use of aspirin; E11.9 Type 2 diabetes mellitus without complications; E78.5 Hyperlipidemia, unspecified; I10 Essential (primary) hypertension; I25.2 Old myocardial infarction
CPT/HCPCS: 10060; 99283

== ENCOUNTER 2022-04-21 22:08 | Emergency (ER) | payer MEDICARE, SELFPAY ==
[2022-04-21 22:08] VITALS: BMI 40.8
[2022-04-21 22:10] VITALS: BP 152/89; PULSE 102; RESP 18; TEMP 36.7; O2SAT 97; BMI 36.1
[2022-04-21 23:35] VITALS: BP 157/98; PULSE 101; RESP 18; TEMP 37.3; O2SAT 96
--- NOTE | 2022-04-21 23:36 | ED_ITS ---
HPI - Extremity Problem General: Chief complaint: Extremity Problem,Nontraumatic Stated complaint: BACK PAIN Time Seen by Provider: 04/21/22 23:11 Source: patient and EMS Mode of arrival: EMS Limitations: no limitations History of Present Illness: 66-year-old male states he has had chronic hip pain for years. He states that he had ran out of his pain medicine and he has follow-up with a new pain management tomorrow he states that tonight he was unable to sleep due to his right hip pain denies any new pain states pain is a 7 out of 10 denies any injury states is worse with movement improved with rest. Associated symptoms: Deny chest pain, fever(s) or rash Review of Systems Const: Denies: fever(s), chills, body aches or change in appetite Eyes: Denies: blurry vision or eye discomfort ENMT: Denies: throat pain or dental pain Card: Denies: chest pain Resp: Denies: dyspnea GI: Denies: abdominal pain, nausea, vomiting or diarrhea : Denies: dysuria Musc: Reports: extremity pain Skin/Breast: Denies: rash Neuro: Denies: headache(s) Psych: Denies: depression Jorge Luis/Lymph: Denies: easy bruising All/Imm: Denies: urticaria PFSH ED PFSH: Medical History ASHD (arteriosclerotic heart disease) Diabetes Encounter for screening colonoscopy Hyperlipidemia Hypertension Myocardial infarction Surgical History History of coronary artery stent placement History of foot surgery S/P tonsillectomy Family History Father CAD (coronary artery disease) LIVER Social History Smoking and tobacco status: never smoked Marital status: service: No Current occupational status: disabled Physical Exam Const: COMMON NORMALS: no acute distress, patient oriented x3 and healthy appearing HENMT: COMMON NORMALS: normocephalic and atraumatic HEAD & SCALP: nor mocephalic and atraumatic Eye: COMMON NORMALS: conjunctivae normal CONJUNCTIVA: Yes conjunctivae normal Neck/C-Spine: COMMON NORMALS: full ROM and supple Chest: COMMONS NORMALS: normal inspection of the chest Resp: COMMON NORMALS: normal respiratory effort Cardio: COMMON NORMALS: regular rate and No murmurs present (Cardio) RATE: regular rate GI: INSPECTION: Yes normal to inspection Extremity: COMMON NORMALS: normal to inspection and full ROM Neuro: COMMON NORMALS: patient oriented x3, moves all extremities and no focal motor deficits Psych: COMMON NORMALS: mental status grossly normal, Normal thought process present and cooperative THOUGHT PROCESS: Normal thought process present Skin: COMMON NORMALS: no rashes or lesions noted and no wounds GENERAL SKIN EXAM: no rashes or lesions noted Course Vital Signs: Vital signs: Vital Signs Temperature 99.1 F 04/21/22 23:35 Pulse Rate 101 H 04/21/22 23:35 Respiratory Rate 18 04/21/22 23:35 Blood Pressure 157/98 04/21/22 23:35 Pulse Oximetry 96 04/21/22 23:35 Oxygen Delivery Me thod 04/21/22 23:35 MDM - Extremity (Nontraumatic) Medical Decision Making Patient presents here with chronic right hip pain patient given morphine here he has no acute findings he is to follow-up with his pain management tomorrow he is stable for discharge at this time. Discharge Plan Discharge Patient Disposition: Home Clinical Impression: Chronic hip pain Qualifiers: Laterality: right Qualified Code(s): M25.551 - Pain in right hip Condition: Stable Prescriptions: No Action omeprazole 20 mg capsule,delayed release(DR/EC) 20 mg PO BID (DME) Diabetic Shoes with 3 Inserts See Rx Instructions .Route .MEDSUPPLY Qty: 1 0RF Rx Instructions: As directed by HOME aspirin [Aspir-81] 81 mg tablet,delayed release (DR/EC) 81 mg PO DAILY clopidogrel 75 mg tablet 75 mg PO DAILY metoprolol tartrate 25 mg tablet 25 mg PO BID dexamethasone sodium phos (PF) 10 mg/mL solution 8 mg Infiltration ONCE Qty: 0.8 0RF atorvastatin 40 mg tablet 40 mg PO DAILY hydrocodone-acetaminophen 5-325 mg tablet 1 tab PO Q6H PRN (Reason: Pain) meloxicam 15 mg tablet 7.5 mg PO BID PRN (Reason: arthritis pain) glipizide 10 mg tablet 20 mg PO BID baclofen 20 mg tablet 20 mg PO TID PRN (Reason: Pain) gabapentin 300 mg capsule 300 mg PO BEDTIME Discharge Orders: Discharge ED (Routine); Ordered 04/21/22 Ordered By: Zuleika Delacruz Referrals: Rafi Travis MD [Primary Care Provider] - Discharge Diet: Advance as tolerated Discharge Activity: Resume usual activity Patient Instructions: Chronic Pain (ED) Coding Level of Care Code ED Redrying Machine Operator for Bk Teague
[2022-04-21 23:43] VITALS: RESP 18
[2022-04-21] MEDS: morphine 4 mg/mL SDV 1 mL IM (23:43)
[2022-04-22 00:23] VITALS: PULSE 92; RESP 16; O2SAT 97
== END 2022-04-22 00:20 | disposition home or self-care (01) ==
PROVIDERS: Emergency Provider Emergency Medicine; PCP Family Medicine
DX: G89.29 Other chronic pain (principal); M25.551 Pain in right hip; Z79.84 Long term (current) use of oral hypoglycemic drugs; Z79.02 Long term (current) use of antithrombotics/antiplatelets; Z79.82 Long term (current) use of aspirin; E11.9 Type 2 diabetes mellitus without complications; E78.5 Hyperlipidemia, unspecified; I10 Essential (primary) hypertension; I25.2 Old myocardial infarction
CPT/HCPCS: 96372; J2270

== ENCOUNTER → 2022-06-09 08:47 | Outpatient (BNVA) | payer MEDICARE, SELFPAY | PROVIDERS: PCP Family Medicine; Visit Provider Podiatrist Foot & Ankle Surgery | DX: E11.8 Type 2 diabetes mellitus with unspecified complications (principal); E11.42 Type 2 diabetes mellitus with diabetic polyneuropathy; R09.89 Other specified symptoms and signs involving the circulatory and respiratory systems; I73.9 Peripheral vascular disease, unspecified; L60.3 Nail dystrophy; L84 Corns and callosities; M20.41 Other hammer toe(s) (acquired), right foot; M21.611 Bunion of right foot; M21.612 Bunion of left foot | CPT/HCPCS: 11056; 11721 ==

== ENCOUNTER 2022-06-25 09:09 | Outpatient (CLI) | payer MEDICARE, SELFPAY ==
--- NOTE | 2022-06-25 09:24 | USCV_ITS ---
Barber Corral Age: 66 Gender: M : 1955 Exam Date: 06/25/2022 09:56 Ordering Phys: Aleks Bowman DPM Technologist: [place] [facility] [place]: leg pain foot pain RIGHT LEFT Brachial 108.00 mmHg Brachial 107.00 mmHg Pressure (mmHg) Waveform Pressure (mmHg) Waveform 125.00 Above Knee 144.00 128.00 Below Knee 132.00 101.00 DIRECTOR OF FOOD AND BEVERAGE SERVICES 121.00 112.00 DPA 125.00 1.00 Ankle/Brachial Index 1.10 138.00 Pre-Exercise Toe Pressure 133.00 1.20 Pre-Exercise Toe/Brachial Index 1.20 FINDINGS Resting CHELSEA 1.0 on the right and 1.1 on the left Resting TBI of 1.2 on the right and 1.2 on the left CONCLUSIONS Normal resting ABIs and TBIs bilaterally No evidence of any significant arterial obstruction, based on the above findings. Dr Mao Odell MD [facility] (Electronically Signed) Final Date: 25 June 2022 17:47 S
== END 2022-06-25 09:10 | disposition home or self-care (01) ==
PROVIDERS: PCP Family Medicine; Visit Provider Podiatrist Foot & Ankle Surgery
DX: I73.9 Peripheral vascular disease, unspecified (principal)
CPT/HCPCS: 93923

== ENCOUNTER → 2022-08-06 13:45 | Outpatient (BNVA) | payer MEDICARE, SELFPAY | PROVIDERS: PCP Family Medicine; Visit Provider Internal Medicine | DX: I25.10 Atherosclerotic heart disease of native coronary artery without angina pectoris (principal); R06.00 Dyspnea, unspecified; E11.9 Type 2 diabetes mellitus without complications; Z79.84 Long term (current) use of oral hypoglycemic drugs; E78.5 Hyperlipidemia, unspecified; I10 Essential (primary) hypertension | CPT/HCPCS: 99214 ==

== ENCOUNTER → 2023-01-07 09:56 | Outpatient (BNVA) | payer MEDICARE, SELFPAY | PROVIDERS: PCP Family Medicine; Referring Provider Family Medicine; Visit Provider Dermatology | DX: C44.311 Basal cell carcinoma of skin of nose (principal); L82.1 Other seborrheic keratosis; L57.0 Actinic keratosis; L57.8 Other skin changes due to chronic exposure to nonionizing radiation; L81.4 Other melanin hyperpigmentation | CPT/HCPCS: 11102; 17000; 99203 ==

== ENCOUNTER 2023-01-13 06:41 | Outpatient (CLI) | payer MEDICARE, SELFPAY ==
[2023-01-13 06:45] VITALS: BMI 32.5
--- NOTE | 2023-01-13 06:50 | ECG_ITS ---
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 Interpretive Statements NAME OF STUDY: LEXISCAN SESTAMIBI STRESS TEST INDICATION: [Chest Pain; Shortness of Breath] Procedure: At the baseline, the blood pressure was 167/112 mmHg with a heart rate of 92 bpm. The electrocardiogram showed normal sinus rhythm, normal axis with normal ST and T's. Right bundle branch block was seen. The Lexiscan was infused over a period of 20 seconds. A total of 0.4 mg of Lexiscan was infused. The stress phase was continued for a total of 5 minutes. Heart rate was at the end of stress phase was 101 bpm and a blood pressure of 154/99 mmHg. The EKG at the peak infusion revealed normal sinus rhythm with no significant ST-T wave changes. Sestamibi was injected 20 seconds after the Lexiscan infusion. Blood pressure at the end of recovery phase was 182/98 mmHg with a heart rate of 100 bpm. Conclusion: 1. Normal EKG response to Lexiscan infusion 2. No Lexiscan induced chest pain or cardiac arrhythmia. 3. Normal blood pressure and heart rate response. 4. Sestamibi/sestamibi perfusion scan pending; see separate report. Electronically Signed On 02-04-2023 9:23:46 CDT by Dominic Jennings M.D. [id number]
--- NOTE | 2023-01-13 06:50 | NMCV_ITS ---
NM radha perf SPECT r/s* [id number] Barber Corral Age: 67 Gender: M : 1955 Exam Date: 01/13/2023 06:50 Ordering Phys: Dominic Jennings M.D ([email or web address]) Technologist: MARIALUISA Benson Exam Location: [facility] Indications: CHEST PAIN, SHORTNESS OF BREATH STRESS TEST Please see separate stress test report in [facility] for full findings IMAGE PROTOCOL Rest/Stress 1 Radiopharmaceutical Dose (mCi) Administration Site Administered by Rest: Tc-99m 10.5 IV MARIALUISA Maharaj Sestamibi Stress:Tc-99m 32.7 IV MARIALUISA Maharaj Sestamibi Rest: 13-Jan-2023 60 Discovery 630 Stress: 13-Jan-2023 30 Discovery 630 Images obtained in supine and prone position. Supine position only as patient was unable to lay prone. SPECT RESULTS Technical Quality: Excellent Raw Data Analysis: Normal Image Corrections: No attenuation or motion correction applied Summed Stress Score: 11 Summed Rest Score: 9 Summed Difference Score: 3 PERFUSION FINDINGS There is a large in size, partially reversible perfusion defect noted in the inferior, apical inferior and apical lateral perez. This is consistent with small large sized prior infarct in the RCA and left circumflex artery territories with significant renetta-infarct ischemia FUNCTIONAL RESULTS (calculated via Gated SPECT) Stress Image LV EF (%): 62 Stress EDV (mL):99 TID: 0.97 Stress ESV (mL):38 FUNCTIONAL FINDINGS: There is normal left ventricular systolic function. IMPRESSIONS 1. Abnormal myocardial perfusion imaging with large area of prior infarct with renetta-infarct ischemia noted in RCA and left circumflex artery territory. 2. LV systolic function is normal. Dominic Jennings MD (Electronically Signed) Final Date: 13 Jan 2023 17:46 S
[2023-01-13] MEDS: regadenoson 0.4 Mg/5 ml Syringe IVP (08:23)
[2023-01-13 08:39] VITALS: BP 182/99; PULSE 100
== END 2023-01-13 06:42 | disposition home or self-care (01) ==
LOC: CDL 06:42
PROVIDERS: PCP Family Medicine; Visit Provider Internal Medicine
DX: R07.9 Chest pain, unspecified (principal); R06.02 Shortness of breath
CPT/HCPCS: 36415; 78452; 93017; 96374; A9500; J2785

== ENCOUNTER → 2023-02-09 09:36 | Outpatient (BNVA) | payer MEDICARE, SELFPAY | PROVIDERS: PCP Family Medicine; Visit Provider Surgery | DX: R19.5 Other fecal abnormalities (principal); K21.9 Gastro-esophageal reflux disease without esophagitis; K90.9 Intestinal malabsorption, unspecified; I25.10 Atherosclerotic heart disease of native coronary artery without angina pectoris | CPT/HCPCS: 99203; 99214 ==

== ENCOUNTER 2023-02-22 08:48 | Outpatient (CLI) | payer MEDICARE, SELFPAY ==
[2023-02-19 09:08] VITALS: BMI 32.5
[2023-02-22] VITALS (10 sets, daily range): BP systolic 116–164; BP diastolic 77–108; PULSE 78–100; RESP 12–25; TEMP 36.7–37.1; O2SAT 96–99
--- NOTE | 2023-02-22 09:00 | XACV_ITS ---
Exam Room: 2 Ht: 175 cm Wt: 100 kg BSA: 2.24 m2 Gender: Male : 1955 Any Known Allergies: No known allergies Exam Priority: Routine Procedure(s): Procedure Description: Diagnostic procedure Procedure Description: PCI procedure Procedure Description: Left Heart Catheterization Procedure Description: Drug Eluting Coronary Stent Procedure Description: PTCA Procedure Description: Miscellaneous Procedure Description: ACT Procedure Description: Coronary Angiography Diagnostic Cath Status: Elective Diagnostic Findings * INDICATION: 67-year-old man with past medical history of CAD who has been having significant dyspnea on exertion. He had stress test that was abnormal. Plan for coronary angiogram with possible percutaneous coronary intervention. * Left Main has no significant disease. * Circumflex has mild to moderate diffuse disease. * Mid Right Coronary Artery to Distal Right Coronary Artery: chronic total occlusion, MEKA: 0 flow. * Proximal Left Anterior Descending: significant 80% stenosis, MEKA: 3 flow. LAD supplies collaterals to RCA. * Mid Left Anterior Descending: mild 40% stenosis, MEKA: 3 flow. * 1st Diagonal: significant 80% stenosis, MEKA: 3 flow. * Coronary angiography shows right dominance. PCI Status: Elective PCI Indication: Other Interventional Findings * PROCEDURE DETAIL: We engaged left main artery with XB 3.0 guide catheter. IV heparin was administered to maintain anticoagulation. 0.014 run-through guidewire was used to cross the stenosis and was put in the diagonal artery. We predilated the stenosis with a 2.25 x 20 mm semicompliant balloon. This was followed by placement of 2.25 x 26 mm resolute Gardners drug-eluting stent. We then predilated proximal LAD stenosis with 2.5 x 12 mm semicompliant balloon. We then predilated with 3.0x10mm scoreflex cutting balloon.We then predilated it with 3.5 x 12 mm NC balloon. This was followed by placement of 3.5 x 18 mm resolute Linh drug-eluting stent. We then postdilated the stent with 3.75 x 8 mm NC balloon. At this time final angiogram was performed that showed excellent stent expansion, no residual stenosis and MEKA-3 flow.. * Proximal Left Anterior Descendin% stenosis treated with a MDT NC EUPHORA RX [id number] BALLOON, MDT NC EUPHORA RX [id number] BALLOON, MDT R LINH 3.5X18 TOVA, and MDT NC EUPHORA RX [id number] BALLOON. 0% residual stenosis, MEKA: 3 flow. * 1st Diagonal: 80% stenosis treated with a AB TREK 2.25X20 RX BALLOON, and MDT R LINH 2.25X26 TOVA. 0% residual stenosis, MEKA: 3 flow. Conclusions 1. Severe 2. multivessel CAD.. 3. Successful revascularization of diagonal artery status post PCI with 1 stent. Successful revascularization of proximal LAD with TOVA x 1. 4. Proximal Left Anterior Descending was treated with a Balloon, Balloon, Drug Eluting Stent, and Balloon. 5. 1st Diagonal was treated with a Balloon, and Drug Eluting Stent. Recommendations * Dual antiplatelet therapy with aspirin and plavix. * High intensity statin therapy. * Outpatient cardiology follow up in 2-4 weeks. Interventional RX Recommendation: PCI w/o planned CABG Diagnostic RX Recommendation: PCI w/o planned CABG Anticoagulation: Heparin Pressures Phase:Rest AO : 149 / 87 ( 111 ) @ 11:38:00 AM 195 / 97 ( 137 ) @ 11:43:00 AM 197 / 97 ( 142 ) @ 11:43:00 AM 126 / 62 ( 90 ) @ 11:53:00 AM LV : 197 / -14 / 14 @ 11:43:00 AM 200 / -14 / 14 @ 11:43:00 AM Valves Phase:DefaultPhase AV : 10.0 @ 11:37:08 AM 10.0 @ 11:37:08 AM AV Mean Gradient: 14.0 @ 11:37:08 AM Clinical Evaluation EBL: 5mL-10mL Procedural Details Procedure Consent Obtained. Pre-Procedure Time Out. Identified patient by full name and date of as verbalized by the patient/guarantor. Does the consent match the physician's order: Yes. Accurate & Complete Informed Consent: Yes. Inpatient/Outpatient History & Physical on Chart: Yes. If H&P is completed, is and addenduem needed: No. Visualize and Verify Site with Patient/Guarantor: N/A. Relevant Radiology Images available: Yes. The risks, benefits, and alternatives of sedation and/or procedure were discussed by physician. The patient agrees to continue. Procedure started. [facility] Clinical Fraility Score: 3: Managing Well. Cosmetic Sales Advisor Indications: New Onset Angina/Abnormal stress test. Chest Pain Symptom Assessment: Atypical Angina. Cardiovascular Instability: No. Correct patient, site and procedure confirmed by cath team. PERRLA. Strong, equal hand oil well fishing tool technician bilaterally. Lungs clear x 5 lobes. IV Site on Arrival: 20 gauge in the right hand. IV Fluids: 0.9% NaCl at KVO. 0 mL infused prior to director of labor and delivery. Pre Procedural Pulses: bilateral dorsalis pedis was Doppled. Pre Procedural Pulses: bilateral posterior tibial was Doppled. Pre Procedural Pulses: bilateral radial was 2+. Oxygen started at 2liters/min via nasal canula. right groin was prepped with chloroprep then draped in the usual sterile fashion. right radial was prepped with chloroprep then draped in the usual sterile fashion. Physician notified. Baseline sample Acquired. HR: 86 BPM. Patient's friend and ride, Ariel Blair, is in the director of labor and delivery waiting room. Dr. Jennings will update at the completion of the procedure. Equipment: 6F - Radial. Cardiac Cath Pack. ACIST Manifold Kit Model BT 2000. Heparinized Saline (2 units/mL), 1000 mL bag. Physician arrived. Physician scrubbed in. Immediate Pre-Procedure Time Out. Correct Patient: Yes; Correct Procedure: Yes; Correct Site: Yes; Correct Patient Position: Yes; Correct Supplies: Yes; Dried Flammable Prep: Yes; Blood Products Available: N/A;. Lidocaine 1% infiltrated to the right radial. Arterial access obtained. A 5 japanese TIG catheter in over the exchange J wire. Multiple views taken of left coronary artery. Catheter redirected to the RCA. Multiple views taken of right coronary artery. Catheter redirected to the LV. EDP Sample taken: LV 197/-15,14; HR: 85 BPM; SpO2: 99%. Pullback taken: LV 200/-15,14; AO 195/97(137); Mean: 14mmHg, Peak to Peak: 10mmHg, SEP: 23sec/min; HR: 85 BPM; SpO2: 99%. Catheter removed over the exchange J wire. Dr. Jennings reviewing cineography. 6 japanese CLS 3 guide catheter was inserted over the exchange J wire. Runthrough guidewire was advanced through the guide catheter to lesion in the diaganol. Inflation number : 1 A AB TREK 2.25X20 RX BALLOON was prepped and advanced across the 1st Diag , then inflated to 8 CHARLES for 0:17 seconds. Inflation number: 2 The AB TREK 2.25X20 RX BALLOON was reinflated across the 1st Diag, to 8 CHARLES for 0:13 seconds. Balloon out. Results checked. Inflation Number : 3 A GURVINDER Delgado LINH 2.25X26 TOVA -Lot Number# [id number] was prepped and advanced across the 1st Diag. The stent was deployed at 12 CHARLES for 0:18 seconds. Exp. . Stent balloon out over wire. Runthrough guidewire redirected to the LAD. Inflation number : 1 A MDT ANDREEA EUPHORA RX [id number] BALLOON was prepped and advanced across the Prox LAD , then inflated to 12 CHARLES for 0:18 seconds. Balloon out. Inflation number: 2 The Scoreflex 3.0 x 10 BALLOON was reinflated across the Prox LAD, to 12 CHARLES for 0:36 seconds. Inflation number: 3 TheScoreflex 3.0 x 10 M BALLOON was reinflated across the Prox LAD, to 4 CHARLES for 0:17 seconds. Inflation number: 4 The Scoreflex 3.0 x 10 BALLOON was reinflated across the Prox LAD, to 0 CHARLES for 0:20 seconds. Inflation number : 5 A MDT NC EUPHORA RX [id number] BALLOON was prepped and advanced across the Prox LAD , then inflated to 12 CHARLES for 0:20 seconds. Inflation number: 6 The MDT NC EUPHORA RX [id number] BALLOON was reinflated across the Prox LAD, to 12 CHARLES for 0:13 seconds. Inflation Number : 7 A MDT R LINH 3.5X18 TOVA -Lot Number# [id number] prepped and advanced across the Prox LAD. The stent was deployed at 12 CHARLES for 0:25 seconds. Exp 2024-07-31. Stent balloon out over wire. Inflation number : 8 A MDT NC EUPHORA RX [id number] BALLOON was prepped and advanced across the Prox LAD , then inflated to 12 CHARLES for 0:19 seconds. Inflation number: 9 The MDT NC EUPHORA RX 3.40O99WM BALLOON was reinflated across the Prox LAD, to 14 CHARLES for 0:18 seconds. Balloon out. Wire out. Results checked. Guide catheter out. ACT drawn. Results 296 seconds. Therapeutic limits - pre-heparin administration 90-150 seconds and monitoring heparin during a vascular procedure >250 seconds. A TR Band was successful obtaining hemostatsis at the Right Radial artery insertion site. TR band placed. Hemostasis obtained. Post Procedure: Pulses reassessed and unchanged. PERRLA. Strong, equal hand oil well fishing tool technician bilaterally. No VTE prophylaxis required. Medication's Wasted: Lidocaine 1% = 2 mL. Medication's Wasted: Nitro = 49.8 mg. Medication's Wasted: Heparin = 2000 units. Medication's Wasted: Other = Versed 1mg. Medication's Wasted: Other = Fentanyl 75 mcg. Total IV fluids: 85 mL. Complications: PCI of the Diagonal and Prox LAD. Estimated blood loss: 5mL-10mL. Responsiveness - Normal response to verbal stimuli; alert and oriented, PERRLA. Airway - Unaffected, no intervention required; spontaneous ventilation. Circulation: W/N/L, pulses unchanged. Nausea/Vomiting: No. Procedure completed. Patient transferred by bed to 1st floor. Vital chart was stopped. Access Site Site: Right Radial artery Sheath Size: 6 Fr Hemostasis Method: TR Band Hemostasis Success: Successful Procedure Medications Start: 10:23 AM Stop: 10:23 AM Medication: Versed Amount: 1 mg Route: I.V. Start: 10:23 AM Stop: 10:23 AM Medication: Fentanyl Amount: 50 mcg Route: I.V. Start: 10:36 AM Stop: 10:36 AM Medication: Nitrogylcerin Amount: 200 mcg Route: I.A. Start: 10:36 AM Stop: 10:36 AM Medication: Versed Amount: 1 mg Route: I.V. Start: 10:37 AM Stop: 10:37 AM Medication: Fentanyl Amount: 25 mcg Route: I.V. Start: 10:37 AM Stop: 10:37 AM Medication: Heparin Amount: 5000 units Route: I.V. Start: 10:52 AM Stop: 10:52 AM Medication: Fentanyl Amount: 25 mcg Route: I.V. Start: 10:53 AM Stop: 10:53 AM Medication: Heparin Amount: 3000 units Route: I.V. Start: 11:00 AM Stop: 11:00 AM Medication: Heparin Amount: 1000 units Route: I.V. Start: 11:01 AM Stop: 11:01 AM Medication: Versed Amount: 1 mg Route: I.V. Start: 11:07 AM Stop: 11:07 AM Medication: Fentanyl Amount: 25 mcg Route: I.V. I, the attending physician, have reviewed and verified all procedure medications. Yes, all medications given per verbal order History/Risk Factors Hypertension: Yes Dyslipidemia: Yes Peripheral Arterial Disease (PAD): No Myocardial Infarction (ID): Yes Obesity: Yes Renal Disease: No Tobacco Use: Never Prior Interventions PCI: Yes CABG: No Valve Surgery: No Date of PCI: 08/02/2019 Report Signatures Finalized by Dominic Jennings MD on 02/26/2023 03:45 PM
[2023-02-22 09:29] LABS: Glucose Point of Care 95 mg/dL (70-110)
[2023-02-22 09:40] LABS: Basophils # 0.1 10^3/uL (0.0-0.1); Basophils % 0.8 %; Eosinophils # 0.2 10^3/uL (0.0-0.8); Eosinophils % 2.2 %; Hematocrit 39.3 % (42.0-52.0); Hemoglobin 12.1 g/dL (11.7-16.6); Lymphocytes # 3.3 10^3/uL (0.8-4.8); Mean Corpuscular HGB Conc 30.8 g/dL (30.0-36.0); Mean Corpuscular Hemoglobin 23.7 pg (28.0-34.0); Mean Corpuscular Volume 77.1 fl (80-94); Mean Platelet Volume 9.5 fL (7.4-10.4); Monocytes # 0.6 10^3/uL (0.2-0.9); Monocytes % 8.7 %; Neutrophils # 3.16 10^3/uL (1.8-7.7); Nucleated Red Blood Cells % 0 %; Platelet Count 402 10^3/cmm (130-400); Red Cell Distribution Width 15.7 % (12.1-15.1); White Blood Count 7.3 10^3/uL (4.0-10.0)
[2023-02-22] MEDS: aspirin 325 mg Tablet PO (09:40)
[2023-02-22] MEDS: diphenhydrAMINE 50 mg Capsule PO (09:40)
[2023-02-22 09:51] LABS: INR 1.12 (0.8-1.2)
[2023-02-22 10:06] LABS: Anion Gap 12.7 (5-19); Blood Urea Nitrogen 14 mg/dL (8-23); Calcium 9.5 mg/dL (8.5-10.5); Carbon Dioxide 24 mmol/L (22-29); Chloride 101 mmol/L (98-107); Glomerular Filtration Rate 60.8 mL/min (90-130); Glucose 93 mg/dL (65-115); Osmolality Calculated 278 mOsm/kg (285-295); Potassium 3.7 mmol/L (3.5-5.1); Sodium 134 mmol/L (136-145)
--- NOTE | 2023-02-22 10:20 | P.HP_ITS ---
Same Day Surgery H&P Indication for Procedure/HPI DATE OF PROCEDURE: February 22, 2023 CHIEF COMPLAINT/INDICATIONFOR SURGICAL PROCEDURE: Dyspnea on exertion/abnormal stress test PREOP DIAGNOSIS: Dyspnea on exertion/abnormal stress test PLANNED PROCEDURE: Operation Date: 02/22/23 10:00 Proposed Procedures p [facility] 29317,R94.39(Left) - Dominic Jennings M.D Possible percutaneous coronary intervention 67-year-old man with past medical history of CAD who has been having significant dyspnea on exertion. He had stress test that was abnormal. Plan for coronary angiogram with possible percutaneous coronary intervention. Medications/Allergies* Home Medications Medication Instructions Recorded Confirmed Type aspirin 81 mg tablet,delayed 81 mg PO DAILY 11/21/19 02/22/23 History release (Aspir-) clopidogrel 75 mg tablet 75 mg PO DAILY 11/21/19 02/22/23 History metoprolol tartrate 25 mg tablet 25 mg PO BID 11/21/19 02/22/23 History omeprazole 20 mg capsule,delayed 20 mg PO BID 07/17/20 02/22/23 History release atorvastatin 40 mg tablet 40 mg PO DAILY 01/29/22 02/22/23 History gabapentin 300 mg capsule 300 mg PO BEDTIME 01/29/22 02/22/23 History glipizide 10 mg tablet 20 mg PO BID 01/29/22 02/22/23 History hydrocodone 5 mg-acetaminophen 325 1 tab PO Q6H PRN Pain 01/29/22 02/22/23 History mg tablet meloxicam 15 mg tablet 7.5 mg PO BID PRN arthritis pain 01/29/22 02/22/23 History Allergies/Adverse Reactions Allergy/AdvReac Type Severity Reaction Status Date / Time No Known Allergies Allergy Verified 02/22/23 09:49 Current Medications: Generic Name Dose Route Start Last Admin Trade Name Freq PRN Reason Stop Dose Admin Sodium Chloride 1,000 mls @ 50 mls/hr 02/22/23 09:15 02/22/23 09:40 Sodium Chloride 0.9% IV 02/23/23 05:14 Not Given .Q20H ONE Pertinent History/Comorbid Conditions* Medical History (Updated 02/09/23 @ 10:32 by Darin Locke DO) ASHD (arteriosclerotic heart disease) Diabetes Encounter for screening colonoscopy Hyperlipidemia Hypertension Myocardial infarction Surgical History (Updated 09/09/21 @ 09:57 by Rolando Richard MD) History of coronary artery stent placement History of foot surgery S/P tonsillectomy Family History (Updated 11/21/19 @ 13:03 by Yee Whitaker RN) CAD (coronary artery disease) Father LIVER Social History Smoking and tobacco status: never smoked Marital status: service: No Current occupational status: disabled Pertinent Exam Findings alert, oriented x 3, clear to auscultation bilaterally and regular rate & rhythm Conscious Sedation Assessment PATIENT ASSESSED PRIOR TO SEDATION, WITH NO CHANGE NOTED: Yes AIRWAY EVAL/ANESTHESIA PLAN: normal airway, ASA III, Local Anesthesia, Risks, benefits & alternatives of sedation and/or procedure discussed and Patient agrees to continue as planned ADDITIONAL INFORMATION: Moderate sedation Recommendations Surgery/Procedure today (Left heart cath with possible percutaneous coronary intervention) Coding Level of Care Code Acute Code for Chg Fwd Diagnoses
--- NOTE | 2023-02-22 11:40 | SUR.PHASEI ---
RECOVERY NOTE Received patient from clinical lab clerk. Status post cardiac catheterization via the right radial approach. TR band in place; site is hemostatic. Vitals are stable. Assessments per flowsheet. Call light in reach. Informed to call for needs.
[2023-02-22] MEDS: metoprolol succinate ER (24 HR) 50 mg Tablet PO (13:18)
[2023-02-22] MEDS: hyDRALAzine 20 mg/mL INJ 1 mL 10 MG IVP (13:18)
[2023-02-22] MEDS: sodium chloride 0.9% 1,000 ML 100 ML IV (13:44)
[2023-02-22 16:59] LABS: Glucose Point of Care 183 mg/dL (70-110)
[2023-02-22] MEDS: insulin lispro 100 unit/1 mL SUBCUT ×2 (17:14→20:30)
--- NOTE | 2023-02-22 18:55 | PC.NURSE ---
Patient comes to CSU from dentures lab technician with a right radial TR-band. 2ml's of air is removed from TR-band at 1511. 2ml's of air is removed at 1533. 2ml's of air is removed at 1608. 2ml's of air is removed at 1645. 2ml's of air is removed at 1700. 2ml's of air is removed at 1715. 2ml's of air is removed at 1730. 1ml of air is removed at 1745. TR-band is removed at 1800. A 2x2 and tegaderm dressing is applied.
[2023-02-22] MEDS: HYDROcodone-acetaminophen 5-325 mg Tablet 1 TAB PO (19:33)
[2023-02-22] MEDS: atorvastatin 40 mg Tablet PO (20:21)
[2023-02-22] MEDS: gabapentin 300 mg Capsule PO (20:21)
[2023-02-22 20:23] LABS: Glucose Point of Care 183 mg/dL (70-110)
[2023-02-22] MEDS: pantoprazole DR 40 mg Tablet PO (22:06)
[2023-02-23] VITALS: BP 167/68; PULSE 87; RESP 18; TEMP 36.4; O2SAT 98
[2023-02-23] MEDS: HYDROcodone-acetaminophen 5-325 mg Tablet 1 TAB PO (01:32)
[2023-02-23 03:47] VITALS: BP 163/93; PULSE 86; RESP 17; TEMP 37; O2SAT 98
[2023-02-23 06:00] VITALS: PULSE 88
[2023-02-23 06:18] LABS: Basophils % 0.5 %; Eosinophils # 0.1 10^3/uL (0.0-0.8); Eosinophils % 1.9 %; Hematocrit 37.8 % (42.0-52.0); Hemoglobin 11.9 g/dL (11.7-16.6); Lymphocytes # 2.2 10^3/uL (0.8-4.8); Mean Corpuscular HGB Conc 31.5 g/dL (30.0-36.0); Mean Corpuscular Hemoglobin 24.4 pg (28.0-34.0); Mean Corpuscular Volume 77.5 fl (80-94); Mean Platelet Volume 9.8 fL (7.4-10.4); Monocytes # 0.5 10^3/uL (0.2-0.9); Monocytes % 7.5 %; Neutrophils # 3.57 10^3/uL (1.8-7.7); Neutrophils % 55.8 %; Nucleated Red Blood Cells % 0 %; Platelet Count 371 10^3/cmm (130-400); Red Blood Count 4.88 10^6/uL (4.1-5.3); Red Cell Distribution Width 15.9 % (12.1-15.1); White Blood Count 6.4 10^3/uL (4.0-10.0)
[2023-02-23 06:22] LABS: Glucose Point of Care 131 mg/dL (70-110)
[2023-02-23 06:39] LABS: Anion Gap 13.1 (5-19); Blood Urea Nitrogen 13 mg/dL (8-23); Calcium 9.3 mg/dL (8.5-10.5); Carbon Dioxide 24 mmol/L (22-29); Chloride 102 mmol/L (98-107); Glucose 136 mg/dL (65-115); Osmolality Calculated 282 mOsm/kg (285-295); Potassium 4.1 mmol/L (3.5-5.1); Sodium 135 mmol/L (136-145)
[2023-02-23 07:38] VITALS: BP 148/89; PULSE 82; RESP 14; TEMP 36.7; O2SAT 99
[2023-02-23] MEDS: metoprolol succinate ER (24 HR) 50 mg Tablet PO (08:14)
[2023-02-23] MEDS: clopidogrel 75 mg Tablet PO (08:14)
[2023-02-23] MEDS: pantoprazole DR 40 mg Tablet PO (08:14)
[2023-02-23] MEDS: aspirin 81 mg EC Tablet PO (08:14)
--- NOTE | 2023-02-23 09:12 | PM.DCS ---
Discharge Providers Date of Admission: 02/22/2023 Date of Discharge: February 23, 2023 Attending Provider at Discharge: Dominic Jennings M.D Primary Care Provider: Rafi Travis MD Reason for Visit Reason for Visit: R94.39 Brief History: 67-year-old man with past medical history of CAD who has been having significant dyspnea on exertion.? He had stress test that was abnormal.? Plan for coronary angiogram with possible percutaneous coronary intervention. Hospital Course Hospital Course Patient had coronary angiogram showing multivesse disease. Proximal LAD had PCI with 1 stent and diagonal artery underwent PCI with 1 stent. Patient was observed overnight and stayed stable. He was discharged home in a stable condition Physical Exam Narrative: GENERAL: Patient i s alert, awake and oriented x3. [] N JOSSELYN: No jugular ve in distension. [] HEENT: No cyanosis . No icterus. No p allor. [] HEART: R egular S1 and S2. No murmur, rub or gallop. [] LUNGS: Clear to auscultat e bilaterally. [] ABDOMEN: Soft, non tender and nondist ended. Positive david wel sounds. No gua rding, rebound or tenderness. [] TEREZA TRAL NERVOUS SYSTE M: Grossly nonfoca l. [] EXTREMITIES: Lower extremities with 1+ edema hema aterally. Pulses p alpable in the low er extremities, david th dorsalis pedis and posterior tibi al. [] Discharge Data Studies Completed and Pending Pending at discharge Category Date Time Status REFRIGERATOR ROOM CLERK request for service Routine Exams 02/22/23 09:00 Taken Laboratory Results WBC 6.4 10^3/uL (4.0-10.0) 02/23/23 03:35 RBC 4.88 10^6/uL (4.1-5.3) 02/23/23 03:35 Hgb 11.9 g/dL (11.7-16.6) 02/23/23 03:35 Hct 37.8 % (42.0-52.0) L 02/23/23 03:35 MCV 77.5 fl (80-94) L 02/23/23 03:35 MCH 24.4 pg (28.0-34.0) L 02/23/23 03:35 MCHC 31.5 g/dL (30.0-36.0) 02/23/23 03:35 RDW 15.9 % (12.1-15.1) H 02/23/23 03:35 Plt Count 371 10^3/cmm (130-400) 02/23/23 03:35 MPV 9.8 fL (7.4-10.4) 02/23/23 03:35 Neut % (Auto) 55.8 % 02/23/23 03:35 Lymph % (Auto) 34.0 % 02/23/23 03:35 Gillespie % (Auto) 7.5 % 02/23/23 03:35 Eos % (Auto) 1.9 % 02/23/23 03:35 Baso % (Auto) 0.5 % 02/23/23 03:35 Neut # (Auto) 3.57 10^3/uL (1.8-7.7) 02/23/23 03:35 Lymph # (Auto) 2.2 10^3/uL (0.8-4.8) 02/23/23 03:35 Gillespie # (Auto) 0.5 10^3/uL (0.2-0.9) 02/23/23 03:35 Eos # (Auto) 0.1 10^3/uL (0.0-0.8) 02/23/23 03:35 Baso # (Auto) 0.0 10^3/uL (0.0-0.1) 02/23/23 03:35 Nucleated RBC % (auto) 0 % 02/23/23 03:35 Nucleated RBCs # 0.0 /100WBC 02/23/23 03:35 PT 14.80 SECONDS (12.1-14.9) 02/22/23 09:28 INR 1.12 (0.8-1.2) 02/22/23 09:28 Sodium 135 mmol/L (136-145) L 02/23/23 05:55 Potassium 4.1 mmol/L (3.5-5.1) 02/23/23 05:55 Chloride 102 mmol/L (98-107) 02/23/23 05:55 Carbon Dioxide 24 mmol/L (22-29) 02/23/23 05:55 Anion Gap 13.1 (5-19) 02/23/23 05:55 BUN 13 mg/dL (8-23) 02/23/23 05:55 Creatinine 1.0 mg/dL (0.7-1.2) 02/23/23 05:55 GFR Calculation 75.0 mL/min (90-130) L 02/23/23 05:55 Glucose 136 mg/dL (65-115) H 02/23/23 05:55 POC Glucose 131 mg/dL (70-110) H 02/23/23 06:06 Calculated Osmolality 282 mOsm/kg (285-295) L 02/23/23 05:55 Calcium 9.3 mg/dL (8.5-10.5) 02/23/23 05:55 Vitals Last Vital Signs Temp 98.0 F 02/23/23 07:38 Pulse 82 02/23/23 07:38 Resp 14 02/23/23 07:38 BP 148/89 02/23/23 07:38 Pulse Ox 99 02/23/23 07:38 O2 Del Method Room Air 02/23/23 07:38 Discharge Plan Discharge Patient Disposition: Home Prescriptions: New aspirin 81 mg Tablet,Delayed Release (Dr/Ec) 81 mg PO DAILY Qty: 90 3RF Continued omeprazole 20 mg capsule,delayed release(DR/EC) 20 mg PO BID (DME) Diabetic Shoes with 3 Inserts See Rx Instructions .Route .MEDSUPPLY Qty: 1 0RF Rx Instructions: As directed by HOME aspirin [Aspir-81] 81 mg tablet,delayed release (DR/EC) 81 mg PO DAILY metoprolol tartrate 25 mg tablet 25 mg PO BID dexamethasone sodium phos (PF) 10 mg/mL solution 8 mg Infiltration ONCE Qty: 0.8 0RF atorvastatin 40 mg tablet 40 mg PO DAILY hydrocodone-acetaminophen 5-325 mg tablet 1 tab PO Q6H PRN (Reason: Pain) meloxicam 15 mg tablet 7.5 mg PO BID PRN (Reason: arthritis pain) glipizide 10 mg tablet 20 mg PO BID gabapentin 300 mg capsule 300 mg PO BEDTIME clopidogrel 75 mg tablet 75 mg PO DAILY Qty: 90 3RF Discharge Orders: Discharge Order (Routine); Ordered 02/23/23 Ordered By: Dominic Jennings Referrals: Brittney Zarate FNP [Nurse Practitioner] - 03/04/23 2:00 pm (Please follow-up with Brittney Zarate on March 04 at 2:00P.M. If you have any questions or need to reschedule. Please call ) Diet: Cardiac and Diabetic Activity: Increase activity as tolerated Patient Instructions: Aspirin (By mouth), Coronary Angioplasty (DC), Hypertension (DC), Post Angiogram Home Care Instructions Discharge Date/Time: 02/23/23 13:24 Discharge Attestations Time Spent in Discharge Care*: less than 30 min Quality Metrics Clinical Quality Measures [ No reported AMI, CVA or VTE this stay] Coding Level of Care Code Acute Code for Chg Fwd Diagnoses
[2023-02-23 10:56] VITALS: BP 148/89; PULSE 82; RESP 14; TEMP 36.7; O2SAT 99
== END 2023-02-23 13:24 | disposition home or self-care (01) ==
LOC: CCL 08:50 → CSU 12:03
PROVIDERS: PCP Family Medicine; Visit Provider Internal Medicine
DX: I25.10 Atherosclerotic heart disease of native coronary artery without angina pectoris (principal); Z95.5 Presence of coronary angioplasty implant and graft; Z79.02 Long term (current) use of antithrombotics/antiplatelets; Z79.82 Long term (current) use of aspirin; Z79.891 Long term (current) use of opiate analgesic; R06.00 Dyspnea, unspecified; I10 Essential (primary) hypertension; E78.5 Hyperlipidemia, unspecified; E11.9 Type 2 diabetes mellitus without complications; R94.39 Abnormal result of other cardiovascular function study
CPT/HCPCS: 36415; 36416; 80048; 82962; 85025; 85347; 85610; 93458; 96361; 96365; 96372; 96376; 99152; 99153; C1725; C1769; C1874; C1887; C1894; C9600; J0360; J1644; J1815; J2250; J3010; J3490; J7030; Q0163; Q9967

== ENCOUNTER → 2023-03-03 13:54 | Outpatient (BNVA) | payer MEDICARE, SELFPAY | PROVIDERS: PCP Family Medicine; Visit Provider Dermatology | DX: Z48.817 Encounter for surgical aftercare following surgery on the skin and subcutaneous tissue (principal) | CPT/HCPCS: 97597 ==

== ENCOUNTER → 2023-03-04 14:08 | Outpatient (BNVA) | payer MEDICARE, SELFPAY | PROVIDERS: PCP Family Medicine; Visit Provider Nurse Practitioner Family | DX: I25.10 Atherosclerotic heart disease of native coronary artery without angina pectoris (principal); I10 Essential (primary) hypertension; I25.2 Old myocardial infarction; Z79.82 Long term (current) use of aspirin | CPT/HCPCS: 99214 ==

== ENCOUNTER → 2023-03-08 15:23 | Outpatient (BNVA) | payer MEDICARE, SELFPAY | PROVIDERS: PCP Family Medicine; Visit Provider Dermatology | DX: T81.89XD Other complications of procedures, not elsewhere classified, subsequent encounter (principal); Y99.9 Unspecified external cause status; Z48.817 Encounter for surgical aftercare following surgery on the skin and subcutaneous tissue | CPT/HCPCS: 97597; 99212 ==

== ENCOUNTER 2023-04-09 12:21 | Outpatient (CLI) | payer MEDICARE, SELFPAY ==
--- NOTE | 2023-04-09 12:45 | USCV_ITS ---
Barber Corral Age: 67 Gender: M : 1955 Exam Date: 04/09/2023 12:56 Ordering Phys: Dominic Jennings M.D ([email or web address]) Technologist: Moshe Alicea Exam Location: [facility] Indication: assess LV function BP: 152 / 88 HR: 96 Rhythm: Sinus Technical Quality: Adequate MEASUREMENTS (Male / Female) Normal Values 2D ECHO LVOT Diameter 2.0 cm LV Ejection Fraction MOD 2C 64.5 % LV Ejection Fraction 2C AL 65.8 % LA Diameter 3.0 cm LA Width 4.1 cm LA Height 5.4 cm RA Width 2.9 cm RA Height 4.9 cm Aorta at Sinotubular Diameter 2.8 cm IVC Diameter 1.1 cm M-MODE Aortic Annulus Diameter 3.2 cm LA Ao Ratio MM 0.9 DOPPLER AV Peak Velocity 119.0 cm/s LVOT Peak Velocity 99.0 cm/s AV Area Cont Eq vti 2.8 cm squared AV Area Cont Eq pk 2.6 cm squared MV Peak Velocity 127.0 cm/s MV Area PHT 10.5 cm squared Mitral E to A Ratio 0.4 MV E' Velocity 25.0 cm/s Mitral E to MV E' Ratio 7.1 Mitral E to LV E' Lateral Ratio 6.3 Mitral E to LV E' Septal Ratio 8.2 Right Atrial Pressure 3.0 mmHg PV Peak Velocity 110.0 cm/s RV Acceleration Time 0.1 s RV Ejection Time 0.2 s RV AcT/ET 0.5 FINDINGS Left Ventricle Left ventricle is normal size. LV systolic function is normal with EF of 50-55%. No regional wall motion abnormalities are noted. Grade 1 diastolic dysfunction Right Ventricle Normal in size and function Right Atrium Normal in size Left Atrium Normal in size Mitral Valve Structurally normal mitral valve. Aortic Valve Structurally normal aortic valve.No significant stenosis or regurgitation Tricuspid Valve Not well visualized Pulmonic Valve Not well visualized Pericardium Normal Aorta Normal in size IVC Appears to be normal CONCLUSIONS LV systolic function is normal with EF 50 to 55%. Grade 1 diastolic dysfunction Compared to prior echocardiogram from 2019, LV systolic function has improved. Dominic Jennings MD (Electronically Signed) Final Date: 27 April 2023 18:21 S
== END 2023-04-09 12:22 | disposition home or self-care (01) ==
PROVIDERS: PCP Family Medicine; Visit Provider Internal Medicine
DX: R06.02 Shortness of breath (principal)
CPT/HCPCS: 93306

== ENCOUNTER → 2023-04-13 16:37 | Outpatient (BNVA) | payer MEDICARE, SELFPAY | PROVIDERS: PCP Family Medicine; Visit Provider Surgery | DX: K21.9 Gastro-esophageal reflux disease without esophagitis (principal); R19.5 Other fecal abnormalities | CPT/HCPCS: 99212 ==

== ENCOUNTER → 2023-06-24 09:07 | Outpatient (BNVA) | payer MEDICARE, SELFPAY | PROVIDERS: PCP Family Medicine; Referring Provider Family Medicine; Visit Provider Podiatrist Foot & Ankle Surgery | DX: L60.3 Nail dystrophy (principal); E11.42 Type 2 diabetes mellitus with diabetic polyneuropathy; R09.89 Other specified symptoms and signs involving the circulatory and respiratory systems; I73.9 Peripheral vascular disease, unspecified; M20.42 Other hammer toe(s) (acquired), left foot; M20.41 Other hammer toe(s) (acquired), right foot; M21.612 Bunion of left foot; M21.611 Bunion of right foot | CPT/HCPCS: 11721 ==

== ENCOUNTER → 2023-06-30 14:20 | Outpatient (BNVA) | payer MEDICARE, SELFPAY | PROVIDERS: PCP Family Medicine; Visit Provider Internal Medicine | DX: I25.10 Atherosclerotic heart disease of native coronary artery without angina pectoris (principal); R06.00 Dyspnea, unspecified; E11.9 Type 2 diabetes mellitus without complications; E78.5 Hyperlipidemia, unspecified; I10 Essential (primary) hypertension | CPT/HCPCS: 99213 ==

== ENCOUNTER → 2023-09-03 08:25 | Outpatient (BNVA) | payer MEDICARE, SELFPAY | PROVIDERS: PCP Family Medicine; Referring Provider Family Medicine; Visit Provider Internal Medicine | DX: E11.9 Type 2 diabetes mellitus without complications (principal); E23.7 Disorder of pituitary gland, unspecified; E78.5 Hyperlipidemia, unspecified; Z79.4 Long term (current) use of insulin; Z79.84 Long term (current) use of oral hypoglycemic drugs | CPT/HCPCS: 99204 ==

== ENCOUNTER → 2023-10-14 16:31 | Outpatient (BNVA) | payer MEDICARE, SELFPAY | PROVIDERS: PCP Family Medicine; Visit Provider Surgery | DX: Z12.11 Encounter for screening for malignant neoplasm of colon (principal); R19.5 Other fecal abnormalities; K21.9 Gastro-esophageal reflux disease without esophagitis; R19.8 Other specified symptoms and signs involving the digestive system and abdomen | CPT/HCPCS: 99212 ==

== ENCOUNTER → 2023-10-19 10:40 | Outpatient (BNVA) | payer MEDICARE, SELFPAY | PROVIDERS: PCP Family Medicine; Visit Provider Podiatrist Foot & Ankle Surgery | DX: L60.3 Nail dystrophy (principal); E11.42 Type 2 diabetes mellitus with diabetic polyneuropathy; R09.89 Other specified symptoms and signs involving the circulatory and respiratory systems; I73.9 Peripheral vascular disease, unspecified; L30.9 Dermatitis, unspecified; Z79.4 Long term (current) use of insulin | CPT/HCPCS: 11721; 99213 ==

== ENCOUNTER 2023-12-03 08:18 | Emergency (ER) | payer MEDICARE, SELFPAY ==
[2023-12-03 08:19] VITALS: BP 152/97; PULSE 90; RESP 16; TEMP 36.6; O2SAT 98
--- NOTE | 2023-12-03 08:21 | ECG_ITS ---
[facility] Test Date: 2023-12-03 Pat Name: Barber Corral Department: Room: Gender: Male First Officer And Flight Instructor: : 1955 Requested By: Gibran Yusuf Order Number: [id number] Soniya MD: Dominic Jennings M.D. Measurements Intervals [place] Rate: 92 P: -3 GA: 202 QRS: -12 QRSD: 144 T: 23 QT: 383 QTc: 476 Interpretive Statements SINUS RHYTHM INTRAVENTRICULAR CONDUCTION DELAY [130+ ms QRS DURATION] PROBABLE LATERAL MYOCARDIAL INFARCTION , OF INDETERMINATE AGE [35 ms Q WAVE IN I/aVL/V5/V6] Compared to ECG 01/29/2022 23:15:52 Intraventricular conduction delay now present Indeterminate axis no longer present Right bundle-branch block no longer present Myocardial infarct finding still present Electronically Signed On 12-03-2023 17:01:49 CDT by Dominic Jennings M.D. [email or web address] f
[2023-12-03 08:27] VITALS: BP 152/97; PULSE 88; RESP 18; O2SAT 98
--- NOTE | 2023-12-03 08:27 | XR_ITS ---
WS: [id number] Portable AP upright chest, 12/03/2023 Clinical Data: dyspnea/cough Comparison: Portable chest, 01/29/2022 Findings: No nodules, masses or effusions are seen. The heart is normal. The pulmonary vascularity is not increased. No pneumonia or pneumothorax is seen. The aortic arch and descending thoracic aorta s how tortuosity. There are monitor leads on the chest wall. Impression: Atherosclerosis.
[2023-12-03 08:33] LABS: Basophils % 0.5 %; Eosinophils # 0.3 10^3/uL (0.0-0.8); Eosinophils % 3.9 %; Hematocrit 40.2 % (37-53); Lymphocytes # 2.8 10^3/uL (0.8-4.8); Lymphocytes % 36.8 %; Mean Corpuscular HGB Conc 31.6 g/dL (30-55); Mean Corpuscular Hemoglobin 27.7 pg (27-33); Mean Corpuscular Volume 87.6 fl (82-101); Mean Platelet Volume 10.2 fL (7.4-10.4); Monocytes # 0.5 10^3/uL (0.2-0.9); Monocytes % 6.6 %; Neutrophils # 3.98 10^3/uL (1.8-7.7); Neutrophils % 51.8 %; Nucleated Red Blood Cells % 0 %; Platelet Count 357 10^3/cmm (157-399); Red Blood Count 4.59 10^6/uL (3.85-5.65); Red Cell Distribution Width 12.9 % (12.1-15.1); White Blood Count 7.69 10^3/uL (3.29-11.43)
--- NOTE | 2023-12-03 08:43 | W.ED.CHESTPA ---
HPI - Chest Pain General: Chief Complaint: Chest Pain Stated Complaint: chest pain Time Seen by Provider: 12/03/23 08:26 Source: patient Mode of arrival: ambulatory History of Present Illness: 67-year-old male presents to the emergency room with complaint of chest pain. 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 This worsened as he walked across the parking lot to go to the doctor's office. Patient has a known history of coronary disease and diabetes mellitus. Over the last couple of years he tells me he had a positive stress test and subsequently had angiogram and had to use stents placed. MD complaint: chest pain Pertinent past history: coronary artery disease, prior MO and RECEIVING WORKER Onset (ago): day(s) (1) Timing of current episode: episodic Onset: during exertion Pain location: substernal and left chest Pain radiation: back Severity: moderate Associated symptoms: Deny abdominal pain, dyspnea or fever(s) Review of Systems Const: Denies: fever(s) or chills Card: Denies: chest pain Resp: Denies: dyspnea GI: Denies: abdominal pain : Denies: dysuria, urinary frequency or urinary urgency Musc: Denies: neck pain or back pain Skin/Breast: Denies: rash PFSH ED PFSH: Medical History Encounter for screening colonoscopy Hypertension Myocardial infarction ASHD (arteriosclerotic heart disease) Diabetes Hyperlipidemia Surgical History History of coronary artery stent placement History of foot surgery S/P tonsillectomy Family History Father CAD (coronary artery disease) LIVER Social History Smoking and tobacco/nicotine status: never used tobacco/nicotine Marital status: service: No Current occupational status: disabled Physical Exam Const: COMMON NORMALS: no acute distress GENERAL APPEARANCE: cooperative and comfortable ORIENTATION/CONSCIOUSNESS: Yes awake, Yes oriented to person, Yes oriented to place and Yes oriented to time HENMT: COMMON NORMALS: normocephalic, atraumatic and hearing grossly normal bilaterally HEAD & SCALP: normocephalic and atraumatic Resp: COMMON NORMALS: normal respiratory effort, No retractions, No use of accessory muscles and clear to auscultation bilaterally AUSCULTATION: clear to auscultation bilaterally Cardio: COMMON NORMALS: regular rate, regular rhythm and No murmurs present (Cardio) RATE: regular rate RHYTHM: regular rhythm GI: COMMON NORMALS: Soft to palpation and No hepatosplenomegaly present AUSCULTATION: Yes normoactive bowel sounds PALPATION: Yes Soft to palpation, No Tenderness to palpation present (GI), No Guarding due to palpation present (GI) and Yes No hepatosplenomegaly present Extremity: COMMON NORMALS: normal to inspection, capillary refill normal, no clubbing, cyanosis or edema, no calf tenderness and no pedal edema Neuro: SENSORIUM/ORIENTATION: Yes oriented to person, Yes oriented to place and Yes oriented to time Skin: COMMON NORMALS: no rashes or lesions noted GENERAL SKIN EXAM: no rashes or lesions noted Course Vital Signs: Vital signs: Vital Signs Temperature 97.9 F 12/03/23 08:19 Pulse Rate 69 12/03/23 10:09 Respiratory Rate 18 12/03/23 10:09 Blood Pressure 129/77 12/03/23 09:35 Pulse Oximetry 98 12/03/23 09:35 Oxygen Delivery Me thod Room Air 12/03/23 09:35 MDM - Chest Pain Medical Decision Making Cardiac enzymes negative EKG does not show anything acute. Reviewing the chart last year he had a stress test that was positive he subsequently had 2 stents placed. He is not having any symptoms and at the moment. He has reproducible symptoms with deep inspiration. Will discharge patient home on isosorbide mononitrate as blood pressure still slightly elevated and have him follow-up with his meat packer within the next week return if he has worsening symptoms. Medical Records I reviewed the patient's medical records. Lab Data I reviewed the patient's lab results. 12/03/23 08:25 12/03/23 08:25 Laboratory Results WBC 7.69 10^3/uL (3.29-11.43) 12/03/23 08:25 RBC 4.59 10^6/uL (3.85-5.65) 12/03/23 08:25 Hgb 12.70 g/dL (11.27-16.99) 12/03/23 08:25 Hct 40.2 % (37-53) 12/03/23 08:25 MCV 87.6 fl (82-101) 12/03/23 08:25 MCH 27.7 pg (27-33) 12/03/23 08: MCHC 31.6 g/dL (30-55) 12/03/23 08:25 RDW 12.9 % (12.1-15.1) 12/03/23 08:25 Plt Count 357 10^3/cmm (157-399) 12/03/23 08:25 MPV 10.2 fL (7.4-10.4) 12/03/23 08:25 Neut % (Auto) 51.8 % 12/03/23 08:25 Lymph % (Auto) 36.8 % 12/03/23 08:25 [place] % (Auto) 6.6 % 12/03/23 08:25 Eos % (Auto) 3.9 % 12/03/23 08:25 Baso % (Auto) 0.5 % 12/03/23 08:25 Neut # (Auto) 3.98 10^3/uL (1.8-7.7) 12/03/23 08:25 Lymph # (Auto) 2.8 10^3/uL (0.8-4.8) 12/03/23 08:25 [place] # (Auto) 0.5 10^3/uL (0.2-0.9) 12/03/23 08:25 Eos # (Auto) 0.3 10^3/uL (0.0-0.8) 12/03/23 08:25 Baso # (Auto) 0.0 10^3/uL (0.0-0.1) 12/03/23 08: Nucleated RBC % (auto) 0 % 12/03/23 08: Nucleated RBCs # 0.0 /100WBC 12/03/23 08:25 Sodium 134 mmol/L (136-145) L 12/03/23 08:25 Potassium 4.2 mmol/L (3.5-5.1) 12/03/23 08:25 Chloride 99 mmol/L (98-107) 12/03/23 08:25 Carbon Dioxide 25 mmol/L (22-29) 12/03/23 08:25 Anion Gap 14.2 (5-19) 12/03/23 08:25 BUN 22 mg/dL (8-23) 12/03/23 08:25 Creatinine 1.1 mg/dL (0.7-1.2) 12/03/23 08:25 GFR Calculation 67.2 mL/min (90-130) L 12/03/23 08:25 Glucose 408 mg/dL (65-115) H 12/03/23 08:25 Calculated Osmolality 299 mOsm/kg (285-295) H 12/03/23 08:25 Calcium 9.6 mg/dL (8.5-10.5) 12/03/23 08:25 Total Bilirubin 0.7 mg/dL (0.15-1.2) 12/03/23 08:25 AST 27 U/L (0-40) 12/03/23 08:25 ALT 41 U/L (0-41) 12/03/23 08:25 Alkaline Phosphatase 51 U/L (40-130) 12/03/23 08:25 Troponin T Baseline 25 ng/L (0-15) H 12/03/23 08:25 Troponin T 120 Minute 21.29 ng/L (0-15) H 12/03/23 10:38 Delta Troponin T -3.71 ABS# (0-10) L 12/03/23 10:38 Total Protein 7.7 g/dL (6.6-8.7) 12/03/23 08:25 Albumin 4.3 g/dL (3.5-5.2) 12/03/23 08:25 Globulin 3.4 g/dL (1.3-4.6) 12/03/23 08:25 Urine Color Yellow (Yellow) 12/03/23 09:50 Urine Appearance Clear (CLEAR) 12/03/23 09:50 Urine pH 5 (5-7) 12/03/23 09:50 Ur Specific [place] 1.015 (1.005-1.030) 12/03/23 09:50 Urine Protein Neg (Negative) 12/03/23 09:50 Urine Glucose (UA) 4+ (Normal) H 12/03/23 09:50 Urine Ketones Negative (Negative) 12/03/23 09:50 Urine Blood Neg (Negative) 12/03/23 09:50 Urine Nitrate Negative (Negative) 12/03/23 09:50 Urine Bilirubin Neg (Negative) 12/03/23 09:50 Urine Urobilinogen Neg mg/dL (Negative) 12/03/23 09:50 Ur Leukocyte Esterase Negative (Negative) 12/03/23 09:50 All radiology interpretation(s) finalized by discharge Discharge Plan Discharge Patient Disposition: Home Clinical Impression: Atypical chest pain Condition: Stable Prescriptions: New isosorbide mononitrate 30 mg tablet extended release 24 hr 30 mg PO DAILY Qty: 30 0RF No Action omeprazole 20 mg capsule,delayed release(DR/EC) 20 mg PO BID (DME) Diabetic Shoes with 3 Inserts See Rx Instructions .Route .MEDSUPPLY Qty: 1 0RF Rx Instructions: As directed by HOME metoprolol tartrate 25 mg tablet 25 mg PO BID hydrocodone-acetaminophen 10-325 mg tablet 1 tab PO Q6H PRN (Reason: Pain) cyclobenzaprine 10 mg tablet 10 mg PO TID insulin glargine [Lantus U-100 Insulin] 100 unit/mL solution 10 unit SUBCUT QPM lisinopril 5 mg tablet 5 mg PO DAILY atorvastatin 40 mg tablet 40 mg PO DAILY meloxicam 15 mg tablet 7.5 mg PO BID PRN (Reason: arthritis pain) glipizide 10 mg tablet 20 mg PO BID gabapentin 300 mg capsule 300 mg PO BEDTIME clopidogrel 75 mg tablet 75 mg PO DAILY Qty: 90 3RF Discharge Orders: Discharge ED (Routine); Ordered 12/03/23 Ordered By: Gibran Johnson Referrals: Rafi Travis MD [Primary Care Provider] - Discharge Diet: Usual diet Discharge Activity: Resume usual activity Patient Instructions: Opioid Safety, Pain Management Activity Restrictions/Additional Instructions: Thank you for choosing [facility] for your healthcare needs today. Please realize this is an emergency room and that we are providing you with a medical screening exam and this may not be complete and all inclusive of all the testing and or work up that you may need to determine your ailment or severity of your illness. It is very important that you follow up as instructed or that you return to the Emergency Department should you have concerns or if your condition changes or worsens in any way. Follow-up with cardiology within the next week Coding Level of Care Code ED Field Account Manager for Bk Teague
[2023-12-03 08:46] LABS: Alanine Aminotransferase 41 U/L (0-41); Albumin Level 4.3 g/dL (3.5-5.2); Alkaline Phosphatase 51 U/L (40-130); Anion Gap 14.2 (5-19); Aspartate Amino Transferase 27 U/L (0-40); Blood Urea Nitrogen 22 mg/dL (8-23); Calcium 9.6 mg/dL (8.5-10.5); Carbon Dioxide 25 mmol/L (22-29); Chloride 99 mmol/L (98-107); Creatinine Clr Calc Pharmacy 77.9697; Globulin 3.4 g/dL (1.3-4.6); Glomerular Filtration Rate 67.2 mL/min (90-130); Glucose 408 mg/dL (65-115); Osmolality Calculated 299 mOsm/kg (285-295); Potassium 4.2 mmol/L (3.5-5.1); Sodium 134 mmol/L (136-145); Total Bilirubin 0.7 mg/dL (0.15-1.2); Total Protein 7.7 g/dL (6.6-8.7)
[2023-12-03 08:47] LABS: Troponin(5th) Baseline 25 ng/L (0-15)
[2023-12-03 09:07] VITALS: BP 152/97; PULSE 91
[2023-12-03] MEDS: nitroglycerin 1 gm/inch oint Pkt 1 INCH TOPICAL (09:07)
[2023-12-03] MEDS: aspirin 81 mg Chew Tablet 324 MG PO (09:07)
[2023-12-03 09:35] VITALS: BP 129/77; O2SAT 98
[2023-12-03 09:57] LABS: Add Urine Microscopic? NO; Charge for UA Resulting for Rev
[2023-12-03 10:09] VITALS: PULSE 69; RESP 18
[2023-12-03 10:15] LABS: Protein Urine Neg (Negative); Specific Gravity, Urine 1.015 (1.005-1.030); Urine Appearance Clear (CLEAR); Urine Color Yellow (Yellow); pH Urine 5 (5-7)
[2023-12-03 10:16] LABS: Bilirubin Urine Neg (Negative); Blood Urine Neg (Negative); Glucose Urine UA 4+ (Normal); Ketones Urine Negative (Negative); Leukocyte Esterase Urine Negative (Negative); Nitrate Urine Negative (Negative); Urobilinogen Urine Neg (Negative)
--- NOTE | 2023-12-03 10:17 | ECG_ITS ---
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 Measurements Intervals [place] Rate: 87 P: 96 MO: 196 QRS: 26 QRSD: 99 T: 31 QT: 390 QTc: 470 Interpretive Statements SINUS RHYTHM LOW QRS VOLTAGE IN PRECORDIAL LEADS [QRS DEFLECTION < 1.0 mV IN CHEST LEADS] Compared to ECG 12/03/2023 08:21:53 Low QRS voltage now present Intraventricular conduction delay no longer present Myocardial infarct finding no longer present Electronically Signed On 12-03-2023 17:07:31 CDT by Dominic Jennings M.D. [id number]
[2023-12-03 11:35] LABS: Troponin 5 2HR 21.29 ng/L (0-15)
[2023-12-03 11:36] LABS: Troponin 5 2HR Delta -3.71 ABS# (0-10)
== END 2023-12-03 12:30 | disposition home or self-care (01) ==
PROVIDERS: Emergency Provider Family Medicine; PCP Family Medicine
DX: E11.9 Type 2 diabetes mellitus without complications (principal); E23.7 Disorder of pituitary gland, unspecified; R07.9 Chest pain, unspecified; R06.00 Dyspnea, unspecified; Z79.4 Long term (current) use of insulin; R07.89 Other chest pain; Z79.02 Long term (current) use of antithrombotics/antiplatelets; Z79.84 Long term (current) use of oral hypoglycemic drugs; I10 Essential (primary) hypertension; I25.2 Old myocardial infarction; E78.5 Hyperlipidemia, unspecified
CPT/HCPCS: 71045; 80053; 81003; 84484; 85025; 93005; 99215; 99285

== ENCOUNTER → 2024-09-14 14:12 | Outpatient (BNVA) | payer MEDICARE, SELFPAY | PROVIDERS: PCP Family Medicine; Visit Provider Internal Medicine | DX: I25.10 Atherosclerotic heart disease of native coronary artery without angina pectoris (principal); R06.00 Dyspnea, unspecified; E11.9 Type 2 diabetes mellitus without complications; E78.5 Hyperlipidemia, unspecified; I10 Essential (primary) hypertension; Z79.84 Long term (current) use of oral hypoglycemic drugs | CPT/HCPCS: 99214 ==

== ENCOUNTER → 2024-09-22 09:20 | Outpatient (BNVA) | payer MEDICARE, SELFPAY | PROVIDERS: PCP Family Medicine; Visit Provider Internal Medicine | DX: E11.9 Type 2 diabetes mellitus without complications (principal); E78.5 Hyperlipidemia, unspecified | CPT/HCPCS: 36415; 80053; 80061; 82044; 83036 ==

== ENCOUNTER 2024-09-29 06:39 | Outpatient (CLI) | payer MEDICARE, SELFPAY ==
--- NOTE | 2024-09-29 | ECG_ITS ---
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 Interpretive Statements LEXISCAN SESTAMIBI STRESS TEST Procedure: At the baseline, the blood pressure was 113/84mmHg with a heart rate of 94 bpm. The electrocardiogram showed normal sinus rhythm, right bundle branch block with normal ST and T's. The Lexiscan was infused over a period of 20 seconds. A total of 0.4 mg of Lexiscan was infused. The stress phase was continued for a total of 5 minutes. Heart rate was at the end of stress phase was 106 bpm and a blood pressure of 128/90 mmHg. The EKG at the peak infusion revealed normal sinus rhythm with no significant ST-T wave changes. Sestamibi was injected 20 seconds after the Lexiscan infusion. Blood pressure at the end of recovery phase was 137/83 mmHg with a heart rate of 101 bpm. Conclusion: 1. Normal EKG response to Lexiscan infusion 2. No Lexiscan induced chest pain or cardiac arrhythmia. 3. Normal blood pressure and heart rate response. 4. Sestamibi/sestamibi perfusion scan pending; see separate report. Electronically Signed On 10-15-2024 12:49:57 FRONT END WEB DESIGNER by Dominic Jennings M.D. [email or web address]
[2024-09-29 07:12] VITALS: BMI 34.4
--- NOTE | 2024-09-29 07:15 | NMCV_ITS ---
NM radha perf SPECT r/s* [id number] Barber Corral Age: 68 Gender: M : 1955 Exam Date: 09/29/2024 07:58 Ordering Phys: Dominic Jennings M.D ([email or web address]) Technologist: MARIALUISA Brambila Exam Location: [facility] Indications: cp STRESS TEST [facility] IMAGE PROTOCOL Rest/Stress 1 Lexiscan Day Radiopharmaceutical Dose (mCi) Administration Site Administered by Rest: Tc-99m 10.3 IV MARIALUISA Brambila Sestamibi Stress:Tc-99m 32.5 IV Mere Guygle, PHARMACY DELIVERY DRIVER Sestamibi Rest: 29-Sep-2024 60 Discovery 630 Stress: 29-Sep-2024 30 Discovery 630 0.4mg Lexiscan. Images obtained in supine and prone position. SPECT RESULTS Technical Quality: Good Raw Data Analysis: Normal Image Corrections: No attenuation or motion correction applied Summed Stress Score: 13 Summed Rest Score: 16 Summed Difference Score: 1 PERFUSION FINDINGS Large areas of mostly fixed perfusion defect seen in the inferior, inferolateral, apical lateral and apical inferior perez. This is consitent with large sized areas of prior infarct with very minimal renetta-infarct ischemia in the RCA and left circumflex artery territories. FUNCTIONAL RESULTS (calculated via Gated SPECT) Stress Image LV EF (%): 61 Stress EDV (mL):80 TID: 1 Stress ESV (mL):31 FUNCTIONAL FINDINGS: There is normal left ventricular systolic function. IMPRESSIONS 1. Abnormal myocardial perfusion imaging with large area of prior infarct seen in inferior, inferolateral, apical lateral and apical inferior perez with very minimal renetta-infarct ischemia in these territories. 2. LV systolic function is normal Dominic Jennings MD (Electronically Signed) Final Date: 29 September 2024 15:55 S
[2024-09-29] MEDS: regadenoson 0.4 Mg/5 ml Syringe IVP (08:25)
[2024-09-29 08:38] VITALS: BP 137/83; PULSE 100
== END 2024-09-29 06:40 | disposition home or self-care (01) ==
PROVIDERS: PCP Family Medicine; Visit Provider Internal Medicine
DX: R07.9 Chest pain, unspecified (principal); I25.2 Old myocardial infarction
CPT/HCPCS: 36415; 78452; 93017; 96374; A9500; J2785

== ENCOUNTER → 2024-10-24 08:48 | Outpatient (BNVA) | payer MEDICARE, SELFPAY | PROVIDERS: PCP Family Medicine; Visit Provider Thoracic Surgery (Cardiothoracic Vascular Surgery) | DX: E11.52 Type 2 diabetes mellitus with diabetic peripheral angiopathy with gangrene (principal); E11.621 Type 2 diabetes mellitus with foot ulcer; L97.512 Non-pressure chronic ulcer of other part of right foot with fat layer exposed | CPT/HCPCS: 11042; 99203 ==

== ENCOUNTER 2024-11-02 16:30 | Emergency (ER) | payer MEDICARE, SELFPAY ==
[2024-11-02 16:38] VITALS: BP 83/51; PULSE 83; RESP 17; TEMP 36.6; O2SAT 97; BMI 33.4
--- NOTE | 2024-11-02 16:45 | ECG_ITS ---
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 Measurements Intervals [place] Rate: 82 P: 9 [place]: 196 QRS: 23 QRSD: 142 T: 12 QT: 397 QTc: 464 Interpretive Statements SINUS RHYTHM INTRAVENTRICULAR CONDUCTION DELAY [130+ ms QRS DURATION] POSSIBLE LATERAL MYOCARDIAL INFARCTION , OF INDETERMINATE AGE [30 ms Q WAVE IN I/aVL/V5/V6] Compared to ECG 12/03/2023 10:17:40 Intraventricular conduction delay now present Myocardial infarct finding now present Electronically Signed On 11-03-2024 19:05:14 CDT by Dominic Jennings M.D. [id number] [id number]
--- NOTE | 2024-11-02 16:46 | W.ED.WEAKNES ---
Documented by User: Gibran Johnson DO 11/02/24 18:07 HPI - Weakness General: Chief complaint: Weakness Stated complaint: low blood pressure Time Seen by Provider: 11/02/24 16:44 History of Present Illness: 70-year-old male presents emergency room with complaints of lightheadedness dizziness low blood pressure. This been going on for about 3 weeks no recent medication changes about 6 weeks ago started on Trulicity as a result of this he is lost a fair amount of weight. His appetite has been down. He had no adjustments in his blood pressure medications since then. He denies any chest pain no exertional dyspnea. No vomiting no diarrhea. Patient does have a history of coronary artery disease he has several stents he is on isosorbide mononitrate 30 mg daily lisinopril 5 mg daily metoprolol 25 twice daily. Associated symptoms: Denies chest pain, chills, dysuria or fever(s) Review of Systems Const: Denies: fever(s) or chills Card: Denies: chest pain Resp: Denies: dyspnea GI: Denies: abdominal pain : Denies: dysuria, urinary frequency or urinary urgency Musc: Denies: neck pain or back pain Skin/Breast: Denies: rash PFSH ED PFSH: Medical History Encounter for screening colonoscopy Hypertension Myocardial infarction ASHD (arteriosclerotic heart disease) Diabetes Hyperlipidemia Surgical History History of coronary artery stent placement History of foot surgery S/P tonsillectomy Family History Father CAD (coronary artery disease) LIVER Social History Smoking and tobacco/nicotine status: never used tobacco/nicotine Marital status: service: No Current occupational status: disabled Physical Exam Const: GENERAL APPEARANCE: cooperative ORIENTATION/CONSCIOUSNESS: Yes awake, Yes oriented to person, Yes oriented to place and Yes oriented to time HENMT: COMMON NORMALS: normocephalic, atraumatic and hearing grossly normal bilaterally HEAD & SCALP: normocephalic and atraumatic Resp: COMMON NORMALS: normal respiratory effort, No retractions, No use of accessory muscles and clear to auscultation bilaterally AUSCULTATION: clear to auscultation bilaterally Cardio: COMMON NORMALS: regular rate, regular rhythm and No murmurs present (Cardio) RATE: regular rate RHYTHM: regular rhythm GI: COMMON NORMALS: Soft to palpation and No hepatosplenomegaly present AUSCULTATION: Yes normoactive bowel sounds PALPATION: Yes Soft to palpation, No Tenderness to palpation present (GI), No Guarding due to palpation present (GI) and Yes No hepatosplenomegaly present Extremity: COMMON NORMALS: normal to inspection, capillary refill normal, no clubbing, cyanosis or edema, no calf tenderness and no pedal edema Neuro: SENSORIUM/ORIENTATION: Yes oriented to person, Yes oriented to place and Yes oriented to time Skin: COMMON NORMALS: no rashes or lesions noted GENERAL SKIN EXAM: no rashes or lesions noted Course Vital Signs: Vital signs: Vital Signs Temperature 97.9 F 11/02/24 16:38 Pulse Rate 83 11/02/24 21:02 Respiratory Rate 17 11/02/24 16:38 Blood Pressure 125/87 11/02/24 21:02 Pulse Oximetry 99 11/02/24 21:02 Oxygen Delivery Me thod Room Air 11/02/24 17:38 MDM - Weakness Medical Decision Making Care signed out to Dr. Drew at change of shift. See final notes for diagnosis and disposition. Lab Data 11/02/24 18:25 11/02/24 18:25 Laboratory Results WBC 8.29 10^3/uL (3.29-11.43) 11/02/24 18: RBC 4.42 10^6/uL (3.85-5.65) 11/02/24 18: Hgb 12.40 g/dL (11.27-16.99) 11/02/24 18: Hct 38.5 % (37-53) 11/02/24 18: MCV 87.1 fl (82-101) 11/02/24 18: MCH 28.1 pg (27-33) 11/02/24 18: MCHC 32.2 g/dL (30-55) 11/02/24 18: RDW 12.8 % (12.1-15.1) 11/02/24 18:25 Plt Count 352 10^3/cmm (157-399) 11/02/24 18: MPV 9.9 fL (7.4-10.4) 11/02/24 18: Neut % (Auto) 48.6 % 11/02/24 18: Lymph % (Auto) 38.5 % 11/02/24 18:25 [place] % (Auto) 10.0 % 11/02/24 18: Eos % (Auto) 1.7 % 11/02/24 18: Baso % (Auto) 0.8 % 11/02/24: Neut # (Auto) 4.03 10^3/uL (1.8-7.7) 11/02/24: Lymph # (Auto) 3.2 10^3/uL (0.8-4.8) 11/02/24: [place] # (Auto) 0.8 10^3/uL (0.2-0.9) 11/02/24: Eos # (Auto) 0.1 10^3/uL (0.0-0.8) 11/02/24: Baso # (Auto) 0.1 10^3/uL (0.0-0.1) 11/02/24: Nucleated RBC % (auto) 0 % 11/02/24: Nucleated RBCs # 0.0 /100WBC 11/02/24 18:25 Sodium 137 mmol/L (136-145) 11/02/24 18: Potassium 3.9 mmol/L (3.5-5.1) 11/02/24 18: Chloride 103 mmol/L (98-107) 11/02/24 18: Carbon Dioxide 21 mmol/L (22-29) L 11/02/24 18: Anion Gap 16.9 (5-19) 11/02/24 18: BUN 19 mg/dL (8-23) 11/02/24 18: Creatinine 1.6 mg/dL (0.7-1.2) H 11/02/24 18:25 GFR Calculation 43.5 mL/min (90-130) L 11/02/24 18: Glucose 174 mg/dL (65-115) H 11/02/24 18:25 Calculated Osmolality 290 mOsm/kg (285-295) 11/02/24 18:25 Lactic Acid 2.1 mmol/L (0.5-2.2) 11/02/24 18: Calcium 9.2 mg/dL (8.5-10.5) 11/02/24 18:25 Total Bilirubin 0.6 mg/dL (0.15-1.2) 11/02/24 18: AST 33 U/L (0-40) 11/02/24 18: ALT 41 U/L (0-41) 11/02/24 18:25 Alkaline Phosphatase 43 U/L (40-130) 11/02/24 18: Total Protein 7.3 g/dL (6.6-8.7) 11/02/24 18: Albumin 4.0 g/dL (3.5-5.2) 11/02/24 18: Globulin 3.3 g/dL (1.3-4.6) 11/02/24 18:25 Urine Color Yellow (Yellow) 11/02/24 18:55 Urine Appearance Clear (CLEAR) 11/02/24 18:55 Urine pH 5.5 (5-7) 11/02/24 18:55 Ur Specific [place] 1.035 (1.005-1.030) H 11/02/24 18:55 Urine Protein Negative (Negative) 11/02/24 18:55 Urine Glucose (UA) 3+ (Normal) H 11/02/24 18:55 Urine Ketones Trace (Negative) 11/02/24 18:55 Urine Blood Negative (Negative) 11/02/24 18:55 Urine Nitrate Negative (Negative) 11/02/24 18:55 Urine Bilirubin Negative (Negative) 11/02/24 18:55 Urine Urobilinogen 1.0 mg/dL (Negative) 11/02/24 18:55 Ur Leukocyte Esterase Negative (Negative) 11/02/24 18:55 Urine RBC 0-2 /hpf (0-2) 11/02/24 18:55 Urine WBC 0-5 /hpf (0-5) 11/02/24 18:55 Ur Squamous Epith Cells 0-5 /hpf (0-5) 11/02/24 18:55 Amorphous Sediment Not Reportable 11/02/24 18:55 Urine Bacteria None seen /hpf (NONE) 11/02/24 18:55 Hyaline Casts 0-4 /lpf H 11/02/24 18:55 XR interpretation done by ED provider, pending radiology final review Discharge Plan Discharge Patient Disposition: Home Clinical Impression: Hypotension Qualifiers: Hypotension type: hypotension due to drug Qualified Code(s): I95.2 - Hypotension due to drugs Condition: Stable Prescriptions: Discontinued metoprolol tartrate 25 mg tablet 25 mg PO BID No Action omeprazole 20 mg capsule,delayed release(DR/EC) 20 mg PO BID (DME) Diabetic Shoes with 3 Inserts See Rx Instructions .Route .MEDSUPPLY Qty: 1 0RF Rx Instructions: As directed by HOME hydrocodone-acetaminophen 10-325 mg tablet 1 tab PO Q6H PRN (Reason: Pain) cyclobenzaprine 10 mg tablet 10 mg PO TID insulin glargine [Lantus U-100 Insulin] 100 unit/mL solution 10 unit SUBCUT QPM lisinopril 5 mg tablet 5 mg PO DAILY atorvastatin 40 mg tablet 40 mg PO DAILY meloxicam 15 mg tablet 7.5 mg PO BID PRN (Reason: arthritis pain) glipizide 10 mg tablet 20 mg PO BID gabapentin 300 mg capsule 300 mg PO BID clopidogrel 75 mg tablet 75 mg PO DAILY Qty: 90 3RF isosorbide mononitrate 30 mg tablet extended release 24 hr 30 mg PO DAILY Qty: 30 0RF Discharge Orders: Discharge ED (Routine); Ordered 11/02/24 Ordered By: Frank Drew Referrals: Rafi Travis MD [Primary Care Provider] - Patient Instructions: Hypotension (DC) Activity Restrictions/Additional Instructions: Follow-up with your primary care provider soon as possible for recheck. Discuss metoprolol dosing. Print Language: Macedonian Coding Level of Care Code ED Power Line Installer for Chg Fwd Related Data Home Medications ?Medication ?Instructions ?Recorded ?Confirmed omeprazole 20 mg capsule,delayed 20 mg PO BID 07/17/20 09/21/24 release atorvastatin 40 mg tablet 40 mg PO DAILY 01/29/22 09/21/24 glipizide 10 mg tablet 20 mg PO BID 01/29/22 09/21/24 meloxicam 15 mg tablet 7.5 mg PO BID PRN arthritis pain 01/29/22 09/21/24 hydrocodone 10 mg-acetaminophen 1 tab PO Q6H PRN Pain 06/30/23 09/21/24 325 mg tablet cyclobenzaprine 10 mg tablet 10 mg PO TID 09/03/23 09/21/24 insulin glargine 100 unit/mL 10 unit SUBCUT QPM 09/03/23 09/21/24 subcutaneous solution (Lantus U-100 Insulin) lisinopril 5 mg tablet 5 mg PO DAILY 09/03/23 09/21/24 gabapentin 300 mg capsule 300 mg PO BID 09/14/24 09/21/24 Previous Rx's ?Medication ?Instructions ?Recorded Diabetic Shoes with 3 Inserts #1 ea 03/03/22 clopidogrel 75 mg tablet 75 mg PO DAILY #90 tabs 02/23/23 isosorbide mononitrate 30 mg 30 mg PO DAILY #30 tabs 12/03/23 tablet,extended release 24 hr Allergies Allergy/AdvReac Type Severity Reaction Status Date / Time No Known Allergies Allergy Verified 09/21/24 15:03 Documented by User: Frank Drew MD 11/02/24 21:10 HPI - Weakness General: Chief complaint: Weakness Stated complaint: low blood pressure Time Seen by Provider: 11/02/24 16:44 PFS ED PFSH: Medical History Encounter for screening colonoscopy Hypertension Myocardial infarction ASHD (arteriosclerotic heart disease) Diabetes Hyperlipidemia Surgical History History of coronary artery stent placement History of foot surgery S/P tonsillectomy Family History Father CAD (coronary artery disease) LIVER Social History Smoking and tobacco/nicotine status: never used tobacco/nicotine Marital status: service: No Current occupational status: disabled Course Vital Signs: Vital signs: Vital Signs Temperature 97.9 F 11/02/24 16:38 Pulse Rate 83 11/02/24 21:02 Respiratory Rate 17 11/02/24 16:38 Blood Pressure 125/87 11/02/24 21:02 Pulse Oximetry 99 11/02/24 21:02 Oxygen Delivery Me thod Room Air 11/02/24 17:38 MDM - Weakness Medical Decision Making Care signed out to Dr. Drew at change of shift. See final notes for diagnosis and disposition. I assumed care of this patient at shift change. Labs were pending. I did review the EKG as well as the labs. CBC was normal. CMP revealed a BUN of 19 creatinine of 1.6. Lactic acid was 2.1. Urine analysis was normal. 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 I think his hypotension is likely secondary to some dehydration but also related to antihypertensive medications. We did give him 2 L of normal saline and blood pressure came up nicely to 123/65. He is asymptomatic now. I recommended he hold his metoprolol until further evaluation by his primary care provider. He was discharged in stable condition. Lab Data 11/02/24 18:25 11/02/24 18:25 Laboratory Results WBC 8.29 10^3/uL (3.29-11.43) 11/02/24 18: RBC 4.42 10^6/uL (3.85-5.65) 11/02/24 18: Hgb 12.40 g/dL (11.27-16.99) 11/02/24 18: Hct 38.5 % (37-53) 11/02/24 18: MCV 87.1 fl (82-101) 11/02/24 18: MCH 28.1 pg (27-33) 11/02/24 18: MCHC 32.2 g/dL (30-55) 11/02/24 18: RDW 12.8 % (12.1-15.1) 11/02/24 18: Plt Count 352 10^3/cmm (157-399) 11/02/24 18: MPV 9.9 fL (7.4-10.4) 11/02/24 18:25 Neut % (Auto) 48.6 % 11/02/24 18:25 Lymph % (Auto) 38.5 % 11/02/24 18:25 [place] % (Auto) 10.0 % 11/02/24 18:25 Eos % (Auto) 1.7 % 11/02/24 18:25 Baso % (Auto) 0.8 % 11/02/24 18:25 Neut # (Auto) 4.03 10^3/uL (1.8-7.7) 11/02/24 18: Lymph # (Auto) 3.2 10^3/uL (0.8-4.8) 11/02/24 18: [place] # (Auto) 0.8 10^3/uL (0.2-0.9) 11/02/24 18: Eos # (Auto) 0.1 10^3/uL (0.0-0.8) 11/02/24 18: Baso # (Auto) 0.1 10^3/uL (0.0-0.1) 11/02/24 18: Nucleated RBC % (auto) 0 % 11/02/24 18: Nucleated RBCs # 0.0 /100WBC 11/02/24 18:25 Sodium 137 mmol/L (136-145) 11/02/24 18:25 Potassium 3.9 mmol/L (3.5-5.1) 11/02/24 18:25 Chloride 103 mmol/L (98-107) 11/02/24 18:25 Carbon Dioxide 21 mmol/L (22-29) L 11/02/24 18: Anion Gap 16.9 (5-19) 11/02/24 18:25 BUN 19 mg/dL (8-23) 11/02/24 18:25 Creatinine 1.6 mg/dL (0.7-1.2) H 11/02/24 18:25 GFR Calculation 43.5 mL/min (90-130) L 11/02/24 18:25 Glucose 174 mg/dL (65-115) H 11/02/24 18:25 Calculated Osmolality 290 mOsm/kg (285-295) 11/02/24 18:25 Lactic Acid 2.1 mmol/L (0.5-2.2) 11/02/24 18:25 Calcium 9.2 mg/dL (8.5-10.5) 11/02/24 18:25 Total Bilirubin 0.6 mg/dL (0.15-1.2) 11/02/24 18:25 AST 33 U/L (0-40) 11/02/24 18:25 ALT 41 U/L (0-41) 11/02/24 18:25 Alkaline Phosphatase 43 U/L (40-130) 11/02/24 18: Total Protein 7.3 g/dL (6.6-8.7) 11/02/24 18: Albumin 4.0 g/dL (3.5-5.2) 11/02/24 18: Globulin 3.3 g/dL (1.3-4.6) 11/02/24 18:25 Urine Color Yellow (Yellow) 11/02/24 18:55 Urine Appearance Clear (CLEAR) 11/02/24 18:55 Urine pH 5.5 (5-7) 11/02/24 18:55 Ur Specific [place] 1.035 (1.005-1.030) H 11/02/24 18:55 Urine Protein Negative (Negative) 11/02/24 18:55 Urine Glucose (UA) 3+ (Normal) H 11/02/24 18:55 Urine Ketones Trace (Negative) 11/02/24 18:55 Urine Blood Negative (Negative) 11/02/24 18:55 Urine Nitrate Negative (Negative) 11/02/24 18:55 Urine Bilirubin Negative (Negative) 11/02/24 18:55 Urine Urobilinogen 1.0 mg/dL (Negative) 11/02/24 18:55 Ur Leukocyte Esterase Negative (Negative) 11/02/24 18:55 Urine RBC 0-2 /hpf (0-2) 11/02/24 18:55 Urine WBC 0-5 /hpf (0-5) 11/02/24 18:55 Ur Squamous Epith Cells 0-5 /hpf (0-5) 11/02/24 18:55 Amorphous Sediment Not Reportable 11/02/24 18:55 Urine Bacteria None seen /hpf (NONE) 11/02/24 18:55 Hyaline Casts 0-4 /lpf H 11/02/24 18:55 Discharge Plan Discharge Patient Disposition: Home Clinical Impression: Hypotension Qualifiers: Hypotension type: hypotension due to drug Qualified Code(s): I95.2 - Hypotension due to drugs Condition: Stable Prescriptions: Discontinued metoprolol tartrate 25 mg tablet 25 mg PO BID No Action omeprazole 20 mg capsule,delayed release(DR/EC) 20 mg PO BID (DME) Diabetic Shoes with 3 Inserts See Rx Instructions .Route .MEDSUPPLY Qty: 1 0RF Rx Instructions: As directed by HOME hydrocodone-acetaminophen 10-325 mg tablet 1 tab PO Q6H PRN (Reason: Pain) cyclobenzaprine 10 mg tablet 10 mg PO TID insulin glargine [Lantus U-100 Insulin] 100 unit/mL solution 10 unit SUBCUT QPM lisinopril 5 mg tablet 5 mg PO DAILY atorvastatin 40 mg tablet 40 mg PO DAILY meloxicam 15 mg tablet 7.5 mg PO BID PRN (Reason: arthritis pain) glipizide 10 mg tablet 20 mg PO BID gabapentin 300 mg capsule 300 mg PO BID clopidogrel 75 mg tablet 75 mg PO DAILY Qty: 90 3RF isosorbide mononitrate 30 mg tablet extended release 24 hr 30 mg PO DAILY Qty: 30 0RF Discharge Orders: Discharge ED (Routine); Ordered 11/02/24 Ordered By: Frank Drew Referrals: Rafi Travis MD [Primary Care Provider] - Patient Instructions: Hypotension (DC) Activity Restrictions/Additional Instructions: Follow-up with your primary care provider soon as possible for recheck. Discuss metoprolol dosing. Print Language: Macedonian Coding Level of Care Code ED Power Line Installer for Chg Fwd Related Data Home Medications ?Medication ?Instructions ?Recorded ?Confirmed omeprazole 20 mg capsule,delayed 20 mg PO BID 07/17/20 09/21/24 release atorvastatin 40 mg tablet 40 mg PO DAILY 01/29/22 09/21/24 glipizide 10 mg tablet 20 mg PO BID 01/29/22 09/21/24 meloxicam 15 mg tablet 7.5 mg PO BID PRN arthritis pain 01/29/22 09/21/24 hydrocodone 10 mg-acetaminophen 1 tab PO Q6H PRN Pain 06/30/23 09/21/24 325 mg tablet cyclobenzaprine 10 mg tablet 10 mg PO TID 09/03/23 09/21/24 insulin glargine 100 unit/mL 10 unit SUBCUT QPM 09/03/23 09/21/24 subcutaneous solution (Lantus U-100 Insulin) lisinopril 5 mg tablet 5 mg PO DAILY 09/03/23 09/21/24 gabapentin 300 mg capsule 300 mg PO BID 09/14/24 09/21/24 Previous Rx's ?Medication ?Instructions ?Recorded Diabetic Shoes with 3 Inserts #1 ea 03/03/22 clopidogrel 75 mg tablet 75 mg PO DAILY #90 tabs 02/23/23 isosorbide mononitrate 30 mg 30 mg PO DAILY #30 tabs 12/03/23 tablet,extended release 24 hr Allergies Allergy/AdvReac Type Severity Reaction Status Date / Time No Known Allergies Allergy Verified 09/21/24 15:03
[2024-11-02] MEDS: sodium chloride 0.9% 500 ML 999 ML IV (17:12)
[2024-11-02 17:38] VITALS: BP 88/49; PULSE 83; O2SAT 99
[2024-11-02 18:57] LABS: Basophils # 0.1 10^3/uL (0.0-0.1); Basophils % 0.8 %; Eosinophils # 0.1 10^3/uL (0.0-0.8); Eosinophils % 1.7 %; Hematocrit 38.5 % (37-53); Lymphocytes # 3.2 10^3/uL (0.8-4.8); Lymphocytes % 38.5 %; Mean Corpuscular HGB Conc 32.2 g/dL (30-55); Mean Corpuscular Hemoglobin 28.1 pg (27-33); Mean Corpuscular Volume 87.1 fl (82-101); Mean Platelet Volume 9.9 fL (7.4-10.4); Monocytes # 0.8 10^3/uL (0.2-0.9); Neutrophils # 4.03 10^3/uL (1.8-7.7); Neutrophils % 48.6 %; Nucleated Red Blood Cells % 0 %; Platelet Count 352 10^3/cmm (157-399); Red Blood Count 4.42 10^6/uL (3.85-5.65); Red Cell Distribution Width 12.8 % (12.1-15.1); White Blood Count 8.29 10^3/uL (3.29-11.43)
[2024-11-02 19:11] LABS: Bilirubin Urine Negative (Negative); Blood Urine Negative (Negative); Glucose Urine UA 3+ (Normal); Ketones Urine Trace (Negative); Leukocyte Esterase Urine Negative (Negative); Nitrate Urine Negative (Negative); Protein Urine Negative (Negative); Urine Appearance Clear (CLEAR); Urine Color Yellow (Yellow); pH Urine 5.5 (5-7)
[2024-11-02 19:14] LABS: Add Urine Microscopic? YES; Bacteria Urine None Seen /hpf; Hyaline Casts Urine 0-4 /lpf; RBC Urine 0-2 /hpf (0-2); Squamous Epithelial Cell Urine 0-5 /hpf (0-5); WBC Urine 0-5 /hpf (0-5)
[2024-11-02 19:18] LABS: Lactic Sepsis W/Reflex 2.1 mmol/L (0.5-2.2)
[2024-11-02 19:19] LABS: Alanine Aminotransferase 41 U/L (0-41); Alkaline Phosphatase 43 U/L (40-130); Anion Gap 16.9 (5-19); Aspartate Amino Transferase 33 U/L (0-40); Blood Urea Nitrogen 19 mg/dL (8-23); Calcium 9.2 mg/dL (8.5-10.5); Carbon Dioxide 21 mmol/L (22-29); Chloride 103 mmol/L (98-107); Globulin 3.3 g/dL (1.3-4.6); Glomerular Filtration Rate 43.5 mL/min (90-130); Glucose 174 mg/dL (65-115); Osmolality Calculated 290 mOsm/kg (285-295); Potassium 3.9 mmol/L (3.5-5.1); Sodium 137 mmol/L (136-145); Total Bilirubin 0.6 mg/dL (0.15-1.2); Total Protein 7.3 g/dL (6.6-8.7)
[2024-11-02 19:26] LABS: Add Urine Culture? No; Specific Gravity, Urine 1.035 (1.005-1.030)
[2024-11-02 20:03] VITALS: BP 83/56; PULSE 86; O2SAT 97
[2024-11-02] MEDS: sodium chloride 0.9% 1,000 ML 999 ML IV (20:15)
[2024-11-02 20:38] LABS: Reflex Lactate Order REFLEX LACTIC ORDERD
[2024-11-02 21:02] VITALS: BP 125/87; PULSE 83; O2SAT 99
[2024-11-02 21:23] VITALS: BP 103/61; PULSE 86; O2SAT 96
== END 2024-11-02 21:26 | disposition home or self-care (01) ==
PROVIDERS: Family Medicine; Emergency Provider Emergency Medicine; PCP Family Medicine
DX: I95.2 Hypotension due to drugs (principal); Z79.02 Long term (current) use of antithrombotics/antiplatelets; Z79.4 Long term (current) use of insulin; E11.9 Type 2 diabetes mellitus without complications; E78.5 Hyperlipidemia, unspecified; I10 Essential (primary) hypertension
CPT/HCPCS: 36415; 80053; 81001; 83605; 85025; 93005; 96360; 97597; 99284; J7030; J7040

== ENCOUNTER 2024-12-08 12:45 | Outpatient (CLI) | payer MEDICARE, SELFPAY ==
--- NOTE | 2024-12-08 12:50 | MR_ITS ---
WS: [id number] MRI LUMBAR SPINE NONCONTRAST TECHNIQUE: Sagittal T1, T2 and STIR imaging. Axial T1 and T2 imaging. 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 FINDINGS: Mild lumbar curve. No acute compression. Disc bulging worse at L4-5 and L5-S1. L1-L2: Mild facet arthropathy. L2-L3: No significant disc bulging. Mild RIGHT foraminal narrowing. Mild facet arthropathy. L3-L4: Mild annular bulging. Slight narrowing of the subarticular recess bilaterally. This is similar to previous. Moderate facet arthropathy. Small bilateral foraminal protrusions RIGHT greater than LEFT with moderate RIGHT and mild LEFT foraminal narrowing. L4-L5: Central disc protrusion with moderate central canal stenosis. Impingement of traversing L5 nerve roots bilaterally. Moderate facet arthropathy. Small RIGHT foraminal protrusion with mild RIGHT foraminal narrowing. LEFT foramen is patent. L5-S1: Shallow central disc bulging with slight impingement of traversing LEFT greater than RIGHT S1 nerve roots. Moderate facet arthropathy. Mild RIGHT greater than LEFT foraminal narrowing. Visualized pelvic bony structures: Normal. Paravertebral soft tissues: Normal. MR/MR lumbar spine wo con* [id number] IMPRESSION: 1. Mild lumbar curve. No acute compression. Alignment is similar to previous. 2. Moderate central canal stenosis L4-5 with a shallow central protrusion and impingement on the traversing L5 nerve roots similar to previous. 3. Central disc bulging L5-S1 impinges the traversing LEFT greater than RIGHT S1 nerve roots. This is stable compared to previous. 4. Narrowing of the subarticular recess bilaterally L3-4. 5. Mild to moderate foraminal narrowing worse at RIGHT L3-4, RIGHT L4-5, and b ilateral L5-S1. 6. Moderate facet arthropathy L4-L5 and L5-S1.
== END 2024-12-08 12:46 | disposition home or self-care (01) ==
PROVIDERS: PCP Family Medicine; Visit Provider Physician Assistant Surgical
DX: M47.816 Spondylosis without myelopathy or radiculopathy, lumbar region (principal); M54.16 Radiculopathy, lumbar region; M48.061 Spinal stenosis, lumbar region without neurogenic claudication; M51.26 Other intervertebral disc displacement, lumbar region; M43.8X6 Other specified deforming dorsopathies, lumbar region; M51.379 Other intervertebral disc degeneration, lumbosacral region without mention of lumbar back pain or lower extremity pain; M48.07 Spinal stenosis, lumbosacral region; M47.896 Other spondylosis, lumbar region; M47.897 Other spondylosis, lumbosacral region; M51.369 Other intervertebral disc degeneration, lumbar region without mention of lumbar back pain or lower extremity pain
CPT/HCPCS: 72148

== ENCOUNTER → 2025-04-12 10:36 | Outpatient (BNVA) | payer MEDICARE, SELFPAY | PROVIDERS: PCP Family Medicine; Visit Provider Internal Medicine | DX: E11.9 Type 2 diabetes mellitus without complications (principal); E78.5 Hyperlipidemia, unspecified; E23.7 Disorder of pituitary gland, unspecified | CPT/HCPCS: 99214 ==

== ENCOUNTER 2025-04-25 10:57 | Outpatient (CLI) | payer MEDICARE, SELFPAY ==
[2025-04-25 12:04] LABS: Creatinine Urine, Random 61 mg/dL (39-259); Microalbum Creatinine Ratio Ur 49 mg/dL (0-20)
[2025-04-25 12:08] LABS: Alanine Aminotransferase 77 U/L (0-41); Albumin Level 4.6 g/dL (3.5-5.2); Alkaline Phosphatase 57 U/L (40-130); Anion Gap 23.0 (5-19); Aspartate Amino Transferase 69 U/L (0-40); Blood Urea Nitrogen 15 mg/dL (8-23); Calcium 10.2 mg/dL (8.5-10.5); Carbon Dioxide 23 mmol/L (22-29); Chloride 95 mmol/L (98-107); Cholesterol 192 mg/dL (0-200); Globulin 4.4 g/dL (1.3-4.6); Glucose 258 mg/dL (65-115); HDL Cholesterol 45 mg/dL (60-100); Osmolality Calculated 294 mOsm/kg (285-295); Potassium 4.0 mmol/L (3.5-5.1); Sodium 137 mmol/L (136-145); Total Protein 9.0 g/dL (6.6-8.7); Triglycerides 227 mg/dL (0-150)
[2025-04-25 12:10] LABS: Estmated Average Glucose 301; Hemoglobin A1C 12.1 % (4.0-6.0)
== END 2025-04-25 10:58 ==
LOC: LAB 10:59
PROVIDERS: PCP Family Medicine; Visit Provider Internal Medicine
DX: I25.10 Atherosclerotic heart disease of native coronary artery without angina pectoris (principal); R07.9 Chest pain, unspecified; I10 Essential (primary) hypertension; E11.9 Type 2 diabetes mellitus without complications; Z79.4 Long term (current) use of insulin; E78.5 Hyperlipidemia, unspecified; Z79.02 Long term (current) use of antithrombotics/antiplatelets; Z95.5 Presence of coronary angioplasty implant and graft; I25.2 Old myocardial infarction
CPT/HCPCS: 36415; 80053; 80061; 82044; 83036; 99213